=== PATIENT | female | born 1955 | race Caucasian/White ===

== ENCOUNTER → 2020-05-11 11:41 | Outpatient (CLI) | payer MEDICARE, OTHER, SELFPAY ==
--- NOTE | ~2020-05-11 | MM_ITS ---
EXAMINATION: MM screening boaz BI w taina HISTORY: Screening TECHNIQUE: Craniocaudal and mediolateral oblique 3-D tomosynthesis images were obtained and synthetic 2-D images were generated. CAD analysis was submitted and interpreted. COMPARISON: Comparison to multiple prior studies sequentially, with oldest reviewed study dated 02/08. BREAST PARENCHYMAL COMPOSITION: There are scattered areas of fibroglandular density. FINDINGS: There is no evidence of suspicious mass, calcification, or architectural distortion to sugg est malignancy in either breast. There has been no suspicious interval change. IMPRESSION: 1. No mammographic evidence of malignancy. 2. Recommend routine screening mammography in one year. BI-RADS Category 1: Negative Reviewed, dictated and finalized at location A.
== END ==
PROVIDERS: Visit Provider Obstetrics & Gynecology
DX: Z12.31 Encounter for screening mammogram for malignant neoplasm of breast (principal)
CPT/HCPCS: 77063; 77067

== ENCOUNTER → 2021-08-21 15:07 | Outpatient (CLI) | payer MEDICARE, OTHER, SELFPAY ==
--- NOTE | ~2021-08-21 | MM_ITS ---
EXAMINATION: MM screening boaz BI w taina HISTORY: Screening TECHNIQUE: Craniocaudal and mediolateral oblique 3-D tomosynthesis images were obtained and synthetic 2-D images were generated. CAD analysis was submitted and interpreted. COMPARISON: Comparison to multiple prior studies sequentially, with oldest reviewed study dated 01/06. BREAST PARENCHYMAL COMPOSITION: There are scattered areas of fibroglandular density. FINDINGS: There is no evidence of suspicious mass, calcification, or architectural distortion to sugg est malignancy in either breast. There has been no suspicious interval change. IMPRESSION: 1. No mammographic evidence of malignancy. 2. Recommend routine screening mammography in one year. BI-RADS Category 1: Negative Reviewed, dictated and finalized at location A.
== END ==
PROVIDERS: PCP Family Medicine; Visit Provider Nurse Practitioner
DX: Z12.31 Encounter for screening mammogram for malignant neoplasm of breast (principal)
CPT/HCPCS: 77063; 77067

== ENCOUNTER 2022-06-07 11:20 | Outpatient (CLI) | payer MEDICARE, OTHER, SELFPAY ==
--- NOTE | ~2022-06-07 | US_ITS ---
US thyroid INDICATION: Palpable mass mid neck. TECHNIQUE: Real-time sonographic images of the thyroid gland were obtained. COMPARISON: Ultrasound dated 06/26/2017 FINDINGS: In the area of palpable concern in the mid neck no discrete solid or cystic mass is identif ied. The right thyroid lobe measures 3.7 x 1.5 x 1.2 cm. The left thyroid lobe measures 3.3 x 1.3 x 0.9 cm. There is normal echotexture and echogenicity throughout the thyroid gland. There are 2 small cysts of the right thyroid lobe measuring 3 mm. Normal vascular flow is present. IMPRESSION: 1. No discrete abnormality identified in the area of palpable concern. 2: Small benign cysts of the right thyroid lobe measuring 3 mm. Reviewed, dictated and finalized at location B.
== END 2022-06-07 11:21 | disposition home or self-care (01) ==
LOC: ANHIMG 11:26
PROVIDERS: PCP Family Medicine; Visit Provider Family Medicine
DX: R22.1 Localized swelling, mass and lump, neck (principal)
CPT/HCPCS: 76536

== ENCOUNTER 2022-12-08 14:38 | Emergency (ER) | payer MEDICARE, OTHER, SELFPAY ==
[2022-12-08] VITALS (10 sets, daily range): BP systolic 130–144; BP diastolic 69–86; PULSE 91–98; RESP 15–30; TEMP 36.7; O2SAT 98–100
--- NOTE | ~2022-12-08 | XR_ITS ---
EXAMINATION: XR chest 2V Exam Date/Time: 12/08/2022 16:50 CORE CUTTER AND REAMER HISTORY: AMS, CONFUSION, H/O DIABETES Comparison: None available. RESULT: Lines, tubes, and devices: None. Lungs and pleura: Clear. Cardiomediastinal silhouette: Unremarkable. Other: No acute osseous or upper abdominal finding. IMPRESSION: No acute cardiopulmonary process. Reviewed, dictated and finalized at location K. CUTTER AND REAMER
[2022-12-08 17:26] LABS: Basophils Percent Auto 0.4 % (0.2-1.2); Eosinophils Absolute Auto 0.2 K/mm3 (0-0.3); Eosinophils Percent Auto 3.8 % (0-4.4); Hematocrit 39.9 % (37.0-47.0); Hemoglobin 13.4 g/dL (12.0-15.0); Immature Granulocyte Absolute 0.02 K/mm3 (0.00-0.031); Immature Granulocyte Percent A 0.4 % (0-0.5); Immature Platelet Fraction Pct 5.2 % (0.9-11.2); Lymphocytes Absolute Auto 1.32 K/mm3 (0.9-3.2); Lymphocytes Percent Auto 25.4 % (18.3-44.2); Mean Corpuscular HGB Conc 33.6 g/dl (32-36); Mean Corpuscular Hemoglobin 32.8 pg (26-34); Mean Corpuscular Volume 97.8 fl (80-100); Mean Platelet Volume 10.7 fl (7.4-10.4); Monocytes Absolute Auto 0.4 K/mm3 (0.1-0.6); Monocytes Percent Auto 8.5 % (2.6-8.5); Neutrophils Absolute Auto 3.2 K/mm3 (1.3-6.7); Neutrophils Percent Auto 61.5 % (45.5-73.1); Platelet Count Result 149 k/mm3 (150-375); Red Blood Count 4.08 M/mm3 (4.2-5.4); Red Cell Distribution Width 13.7 % (11.5-14.5); White Blood Count 5.2 K/mm3 (4.5-10.0)
[2022-12-08 17:27] LABS: Appearance Urine Slightly Cloudy (Clear); Bilirubin Urine Negative (Negative); Blood Urine Trace-intact (Negative); Color Urine Yellow (Yellow); Glucose Urine UA Trace mg/dL (Negative); Ketones Urine Negative (Negative); Leukocyte Esterase Ur 2+ LEU/UL (Negative); Nitrate Urine Negative (Negative); Protein Urine Negative (Negative); Specific Grav Ur >= 1.030 (1.001-1.035); Urobilinogen Urine 0.2 mg/dL (<2.0); pH Urine 5.5 (5.0-9.0)
[2022-12-08 17:30] LABS: Bacteria Urine Trace /hpf; Mucus Urine Rare /lpf; Squamous Epithelial Cell Urine Occasional /hpf (Few); WBC Urine >75 /hpf
[2022-12-08 17:31] LABS: Add Urine Microscopic? YES
[2022-12-08] MEDS: CARBIDOPA/LEVODOPA 25/100 MG TABLET 1 TABLET PO (17:36)
[2022-12-08 17:39] LABS: Alanine Aminotransferase 14 U/L (6-35); Albumin Level 4.7 g/dL (3.5-5.1); Alkaline Phosphatase 101 U/L (38-126); Anion Gap 10 mmol/L (8-16); Aspartate Amino Transferase 38 U/L (14-36); Bilirubin,Total 0.8 mg/dL (0.2-1.3); Blood Urea Nitrogen 13 mg/dL (7-17); Carbon Dioxide 25 mmol/L (22-30); Chloride 106 mmol/L (98-107); Estimated CRCL calculation 50 ml/min; Estimated Glomerular Filt Rate 55; Glucose 193 mg/dL (65-110); Sodium 141 mmol/L (137-145)
--- NOTE | 2022-12-08 18:00 | ED.AMS ---
HPI - Altered Mental Status General Chief Complaint: Altered Mental Status Stated Complaint: AMS Time Seen by Provider: 12/08/22 16:35 History of Present Illness HPI narrative: Patient is a 67-year-old female who presents ER with an episode of confusion. reports patient has been having confusion for the last 2 months. It is intermittent. Will last a couple hours at a time. Today he went to get a frozen Coke for her and she locked him out of the car and said he was a stranger that lives in her home and she felt unsafe. She is back to her baseline is oriented x3. She reports history of Parkinson's. Her neurologist decreased some medication to see if it would help these episodes of confusion/hallucination. She denies any other complaints at this time. Related Data Home Medications Medication Instructions Recorded Confirmed multivitamin 1 tablet PO DAILY 11/09/20 11/16/22 amantadine HCl 137 mg 274 mg PO QHS 05/29/21 11/16/22 capsule,extended release 24 hr (Gocovri) carbidopa 25 mg-levodopa 100 mg 1 tablet PO QID 05/29/21 11/16/22 tablet carbidopa ER 50 mg-levodopa 200 mg 1 tablet PO DAILY 05/29/21 11/16/22 tablet,extended release gabapentin 300 mg capsule 300 mg PO TID 05/29/21 11/16/22 cholecalciferol (vitamin D3) 50 50 mcg PO DAILY 12/04/21 11/16/22 mcg (2,000 unit) capsule Allergies Allergy/AdvReac Type Severity Reaction Status Date / Time LUANN Inhibitors Allergy Mild cough Verified 11/16/22 14:23 latex Allergy Mild itching, Verified 11/16/22 14:23 redness Review of Systems Review of Systems: All systems reviewed & are unremarkable except as noted in HPI and below Constitutional: Constitutional: Denies chills and Denies fever(s) Cardiovascular: Cardiovascular: Denies chest pain, Denies rapid heart rate and Denies radiating jaw, neck or arm pain Gastrointestinal: Gastrointestinal: Denies abdominal pain, Denies nausea and Denies vomiting Genitourinary: Genitourinary: Denies dysuria and Denies urinary urgency Neurologic: Reports confusion, Denies tingling and Denies paresthesias Comments: Resting tremor PMFSH Past Medical History Medical History Anxiety Benign essential hypertension Chronic GERD Chronic low back pain CKD (chronic kidney disease) stage 3, GFR 30-59 ml/min DM w/o complication type II Dyslipidemia Fatty liver Parkinsons disease Primary osteoarthritis involving multiple joints Screening for malignant neoplasm of colon performed (~04/2020) Cologard Negative Spinal stenosis Vitamin D deficiency Surgical History Surgical History History of bilateral knee replacement (~2014) History of 1989 History of patellar fracture 10/2017 - ORIF Family History Family History (Updated 11/16/22 @ 14:28 by Arlene Jackson CMA) Mother Hypertension Family history of diabetes mellitus in first degree relative Father Hypertension Family history of congestive heart failure Family history of heart disease in male family member before age 55 Acute myocardial infarction Sibling Family history of diabetes mellitus in first degree relative Other Cerebrovascular accident Diabetes mellitus Family history of gout Social History Social History (Updated 11/16/22 @ 14:34 by Arlene Jackson CMA) Smoking status: Never smoker Alcohol intake: never Substance use: never Substance use type: does not use Lack of Transportation: No Lack of Food: Never True Current Housing: I Have Housing Concerned About Future Housing: No Difficulty Paying Gas/Electric Bills: No Difficulty Paying for Meds: No Currently Unemployed: No Education: Bachelor's Degree Difficulty w/ Childcare or Family Care: No Living arrangements: with family Additional living arrangements comments: Occupation/Education: retired [employer]
[2022-12-08] MEDS: CEPHALEXIN 500 MG CAPSULE PO (18:16)
== END 2022-12-08 18:50 | disposition home or self-care (01) ==
PROVIDERS: Emergency Provider Emergency Medicine; PCP Family Medicine
DX: N39.0 Urinary tract infection, site not specified (principal); R41.0 Disorientation, unspecified; I12.9 Hypertensive chronic kidney disease with stage 1 through stage 4 chronic kidney disease, or unspecified chronic kidney disease; E11.22 Type 2 diabetes mellitus with diabetic chronic kidney disease; N18.30 Chronic kidney disease, stage 3 unspecified; G20 Parkinson's disease; E55.9 Vitamin D deficiency, unspecified; M19.90 Unspecified osteoarthritis, unspecified site; K21.9 Gastro-esophageal reflux disease without esophagitis; Z96.653 Presence of artificial knee joint, bilateral; Z79.84 Long term (current) use of oral hypoglycemic drugs
CPT/HCPCS: 36415; 71046; 80053; 81001; 85025; 85055; 87086; 99283; A9270

== ENCOUNTER 2022-12-17 10:32 | Outpatient (CLI) | payer MEDICARE, OTHER, SELFPAY ==
[2022-12-17 10:49] LABS: Kit Draw Collected
== END 2022-12-17 10:33 | disposition home or self-care (01) ==
LOC: ANHGOSHLAB 10:33
PROVIDERS: PCP Family Medicine; Visit Provider Nurse Practitioner
DX: E11.9 Type 2 diabetes mellitus without complications (principal)
CPT/HCPCS: 36415

== ENCOUNTER 2023-06-28 08:30 | Outpatient (CLI) | payer MEDICARE, OTHER, SELFPAY ==
[2023-06-28 13:11] LABS: Basophils Percent Auto 0.4 % (0.2-1.2); Eosinophils Absolute Auto 0.2 K/mm3 (0-0.3); Eosinophils Percent Auto 2.6 % (0-4.4); Hematocrit 39.7 % (37.0-47.0); Hemoglobin 13.2 g/dL (12.0-15.0); Immature Granulocyte Absolute 0.02 K/mm3 (0.00-0.031); Immature Granulocyte Percent A 0.4 % (0-0.5); Lymphocytes Absolute Auto 1.54 K/mm3 (0.9-3.2); Mean Corpuscular HGB Conc 33.2 g/dl (32-36); Mean Corpuscular Hemoglobin 33.3 pg (26-34); Mean Corpuscular Volume 100.3 fl (80-100); Mean Platelet Volume 10.9 fl (7.4-10.4); Monocytes Absolute Auto 0.5 K/mm3 (0.1-0.6); Monocytes Percent Auto 9.3 % (2.6-8.5); Neutrophils Absolute Auto 3.4 K/mm3 (1.3-6.7); Neutrophils Percent Auto 60.3 % (45.5-73.1); Platelet Count Result 147 k/mm3 (150-375); Red Blood Count 3.96 M/mm3 (4.2-5.4); Red Cell Distribution Width 12.4 % (11.5-14.5); White Blood Count 5.7 K/mm3 (4.5-10.0)
[2023-06-28 13:17] LABS: Hemoglobin A1C 5.6 % (<5.7)
[2023-06-28 13:32] LABS: Alanine Aminotransferase 18 U/L (6-35); Albumin Level 4.6 g/dL (3.5-5.1); Alkaline Phosphatase 70 U/L (38-126); Anion Gap 12 mmol/L (8-16); Aspartate Amino Transferase 56 U/L (14-36); Bilirubin,Total 0.8 mg/dL (0.2-1.3); Blood Urea Nitrogen 30 mg/dL (7-17); Calcium 9.6 mg/dL (8.4-10.2); Carbon Dioxide 24 mmol/L (22-30); Chloride 103 mmol/L (98-107); Cholesterol 180 mg/dL (0-200); Estimated Glomerular Filt Rate 44; Glucose 88 mg/dL (65-110); HDL Direct 43 mg/dL; Potassium 4.2 mmol/L (3.4-5.0); Sodium 139 mmol/L (137-145); Triglycerides 201 mg/dL (<150)
[2023-06-28 13:43] LABS: Vitamin D 25 Hydroxy 80.3 ng/mL
[2023-06-28 13:44] LABS: LDL Cholesterol Direct 86 mg/dL
== END 2023-06-28 08:31 | disposition home or self-care (01) ==
PROVIDERS: PCP Family Medicine; Visit Provider Family Medicine
DX: E55.9 Vitamin D deficiency, unspecified (principal); I10 Essential (primary) hypertension; E11.9 Type 2 diabetes mellitus without complications; E78.5 Hyperlipidemia, unspecified; E53.8 Deficiency of other specified B group vitamins
CPT/HCPCS: 36415; 80053; 80061; 82306; 82607; 83036; 84443; 85025

== ENCOUNTER 2023-08-13 06:15 | Day surgery (SDC) | payer MEDICARE, OTHER, SELFPAY ==
--- NOTE | ~2023-08-13 | XR_ITS ---
XR fluoroscopy no charge Procedure:Bilateral intra-articular sacroiliac joint steroid injection TECHNIQUE: Fluoroscopy used during Bilateral intra-articular sacroiliac joint steroid injection perf ormed by [Jorge Gonzalez MD] on 08/13/2023. 12 seconds of fluoroscopy time with 7 fluoroscopic images captured. FINDINGS: Correlate with procedure note. IMPRESSION: Fluoroscopy used during Bilateral intra-articular sacroiliac joint steroid injection. Reviewed, dictated and finalized at location B.
--- NOTE | 2023-08-13 04:55 | WPDHPUPDATE1 ---
History and Physical Update Update Date/Time: 08/13/23 04:55 History and Physical has been reviewed, including an updated exam of the patient. There are NO changes in the patient's condition. Risks, benefits, and alternatives have been discussed and questions answered. Patient agrees to proceed with procedure.
[2023-08-13 08:36] VITALS: BP 119/68; PULSE 70; RESP 20; TEMP 36.6; O2SAT 100
[2023-08-13] MEDS: BUPivacaine HCL 0.5% 10 ML AMP 2 ML INFILTRATE (09:45)
[2023-08-13] MEDS: BETAMETHASONE SODIUM PHOSPHATE PF INJ 6 MG/ML VIAL INFILTRATE (09:45)
[2023-08-13] MEDS: LIDOCAINE HCL 1% PF INJ 5 ML VIAL XX (09:45)
--- NOTE | 2023-08-13 09:53 | W.PM.PROC2 ---
Procedure Note - Detailed Date of Procedure 08/13/23 Pre-op Diagnosis Sacroiliitis, sacral spondylosis, dorsalgia Post-op Diagnosis Same Procedure Performed [Right Left] Sacroiliac Joint Steroid Injection under Fluoroscopic Guidance and with Contrast Control, [Right Left] [superior cluneal nerve block][, trigger point injections of the right erector spinae, quadratus lumborum and gluteal muscles (3+ muscles total)]. Surgeon Jorge Gonzalez MD Anesthesia Local Indications chronic, recalcitrant mobility limiting bilateral pelvic pain secondary to sacroiliac joint arthropathy unresponsive to more conservative care Description of Procedure INFORMED CONSENT: Risks, benefits and alternatives to the procedure were discussed in detail with the patient who expressed explicit understanding and consent to proceed. Patient was informed verbally and in written form regarding the risks associated with the procedure including the low risk of serious infection, bleeding/bruising, allergic reaction, nerve or organ injury, paralysis, procedural site pain or discomfort, worsening pain and/or mobility, failure to treat and/or disfigurement. The patient expressed explicit understanding and consent to proceed. All materials required for the procedure were available prior to procedure start. Site and side were marked prior to procedure and confirmed in the presence of the patient. PROCEDURE IN DETAIL: The patient was brought to the procedural suite and placed in the prone position. Patient was made comfortable with use of pillows under the head/chest, hips and ankles. Skin overlying the injection site on the affected side(s) was prepared broadly with ChloraPrep applicator and draped in a sterile manner. Aseptic technique was used throughout. The SI joint was identified in the AP view and contralateral oblique angulation with caudal tilt was utilized to optimize visualization of the inferior and medial joint line representing the posterior portion of the joint. Local anesthesia was established by infiltration with approximately 5 mL of 2% lidocaine via a 1-1/2 inch 27-gauge needle. A 22-gauge 3.5 inch Quincke spinal needle was advanced until the needle entered the inferior third of the right SI joint space approximately 1cm cephalad from its most inferior point. In the AP view, 0.5 mL of Omnipaque 300 contrast medium was injected after negative aspiration for CSF, blood or other bodily fluid, showing appropriate intra-articular spread of contrast without evidence of intravascular, perineural or intrathecal placement. A 1.0 mL solution containing 3.0 mg of betamethasone in 0.5% PF bupivacaine was injected after repeat negative aspiration. Appropriate spread of the injectate was confirmed with washout of previous injected contrast. No parasthesias were elicited. Needle was removed completely intact without difficulty. The same exact procedure was repeated for all remaining levels on the contralateral side, left SI joint, modified as necessary to accommodate for the new target location with identical findings/results and no evidence of complication. Images were saved and documented in the patient chart. Patient's skin was cleansed and sterile bandage applied. The patient tolerated the procedure well. The patient was transported to the recovery area in stable condition where they were observed for an appropriate amount of time prior to discharge, without evidence of complication. The patient was instructed to avoid excessive activity for the next 48 hours, including climbing and frequent use of stairs. Showers only for 48 hours. They were instructed not to drive or operate heavy machinery for 24 hours. They are to monitor for severe headaches, fevers, chills, night sweats, erythema/swelling at the site or any other signs of infection, bleeding/bruising, bowel or bladder changes as well as new pain, weakness or numbness in the upper or lower extremity. Should they notice these changes, they
[2023-08-13 09:56] VITALS: BP 106/69; PULSE 78; RESP 18; O2SAT 98
== END 2023-08-13 10:15 | disposition home or self-care (01) ==
LOC: ASC 08:05
PROVIDERS: PCP Family Medicine; Visit Provider Anesthesiology Pain Medicine
PROC: (CPT G0260; principal; 2023-08-13 09:00)
DX: M46.1 Sacroiliitis, not elsewhere classified (principal); M54.59 Other low back pain
CPT/HCPCS: G0260 ×2; 27096; 99199

== ENCOUNTER 2023-09-20 12:58 | Outpatient (CLI) | payer MEDICARE, OTHER, SELFPAY ==
--- NOTE | ~2023-09-20 | MR_ITS ---
EXAMINATION: MR brain/brain stem wo con DATE: 09/20/2023 14:00 INDICATION: Other symptoms and signs involving cognitive function. TECHNIQUE: Magnetic resonance imaging (MRI) of the brain and brainstem was performed without intraven ous contrast. COMPARISON: None. FINDINGS: There are scattered areas of nonspecific increased T2-weighted signal intensity in the cere bral white matter and bilateral basal ganglia. There is no intracranial hemorrhage, acute infarction, or abnormal intracranial mass lesion. The ventricles are normal in size. The orbits are normal. The paranasal sinuses are clear. The mastoid air cells are normal. IMPRESSION: 1. Moderate nonspecific cerebral white matter disease and disease of the bilateral basal ganglia, whi ch likely represents chronic small vessel ischemic disease. Reviewed, dictated and finalized at location A. [employer] IMPRESSION: 1. Moderate nonspecific cerebral white matter disease and disease of the bilate ral basal ganglia, which likely represents chronic small vessel ischemic diseas e.
--- NOTE | ~2023-09-20 | XR_ITS ---
EXAMINATION: XR hip BI 2V w AP pelvis, XR lumbar spine 6V w bending DATE: 09/20/2023 14:29 INDICATION: Low back pain and sacroiliitis TECHNIQUE: 1. AP, lateral, and lateral flexion, lateral extension, left and right oblique and coned-down lateral lumbosacral views of the lumbar spine were obtained. 2. Anteroposterior view of the pelvis and anteroposterior and frog-leg lateral views of the left hip and anteroposterior and frog-leg lateral views of the right hip and were obtained. COMPARISON: Lumbar spine MR dated 09/20/2023 FINDINGS: Lumbar spine: 10 degrees lumbar levoscoliosis. 4 mm anterolisthesis L4 on L5 which is unchanged with flexion and ex tension. There is hypomotility of the lumbar spine with flexion and extension. Vertebral body heights are normal. Moderate disc height loss at T9-T10 through T11-T12, mild Mild disc height loss at L2-L3 and L3-L4 and moderate disc height loss at L4-L5. Multilevel bilateral moderate upper and severe mid to lower lumbar facet osteoarthritis. No pars interarticularis defects. 4 mm calcification projectin g over the upper pole of the right kidney suspicious for nephrolithiasis. Multiple calcifications in the pelvis most likely representing phleboliths although distal ureteral stones cannot be excluded. Pelvis and bilateral hips: Bone alignment is normal. No fracture or suspected avascular necrosis. Mild osteoarthritis at the bi lateral hip and sacroiliac joints. No evident erosions at the bilateral sacroiliac joints to suggest an inflammatory sacroiliitis. IMPRESSION: 1. Moderate lumbar spondylosis with no change in 4 mm anterolisthesis of L4 on L5 with flexion or ext ension. 2. Mild bilateral hip and sacroiliac osteoarthritis. No evident erosions at the sacroiliac joints to suggest inflammatory sacroiliitis. 3. 4 mm calcification projecting over the upper pole of the right kidney possibly representing a donna l stone. Reviewed, dictated and finalized at location A. INTMENT CLERK IMPRESSION: 1. Moderate lumbar spondylosis with no change in 4 mm anterolisthesis of L4 on L5 with flexion or extension. 2. Mild bilateral hip and sacroiliac osteoarthritis. No evident erosions at the sacroiliac joints to suggest inflammatory sacroiliitis. 3. 4 mm calcification projecting over the upper pole of the right kidney possib ly representing a renal stone.
--- NOTE | ~2023-09-20 | MR_ITS ---
EXAMINATION: MR lumbar spine wo con DATE: 09/20/2023 14:10 INDICATION: Other chronic pain. Spinal stenosis. TECHNIQUE: Magnetic resonance imaging (MRI) of the lumbar spine was performed without intravenous con trast. COMPARISON: Lumbar spine radiographs 09/20/2023 FINDINGS: There is 4 mm anterolisthesis of L4 on L5. Vertebral body heights are normal. There is julio rely decreased disc height at T11-T12, mildly decreased disc height at L2-L3 and L3-L4, and moderatel y decreased disc height at L4-L5. The distal spinal cord signal intensity is normal. The conus medull rahul is at L1. The following disc levels are specifically discussed: L1-L2: The disc is bulging. There is moderate right and mild left facet joint osteoarthritis. There i s mild bilateral neural foraminal stenosis. There is no central canal stenosis. L2-L3: The disc is bulging. There is moderate bilateral facet joint osteoarthritis. There is mild pete ateral neural foraminal stenosis. There is mild central canal stenosis. L3-L4: The disc is bulging. There is severe bilateral facet joint osteoarthritis. There is mild bilat eral neural foraminal stenosis. There is mild central canal stenosis. L4-L5: The disc is bulging and has an annular fissure. There is severe bilateral facet joint osteoart hritis. There is mild bilateral neural foraminal stenosis. There is mild central canal stenosis. L5-S1: The disc is bulging. There is severe bilateral facet joint osteoarthritis. There is mild bilat eral neural foraminal stenosis. There is mild central canal stenosis. IMPRESSION: 1. Moderate lumbar spondylosis. Reviewed, dictated and finalized at location A. RVISOR DOCK
== END 2023-09-20 12:59 | disposition home or self-care (01) ==
PROVIDERS: PCP Family Medicine; Visit Provider Family Medicine
DX: M46.1 Sacroiliitis, not elsewhere classified (principal); M47.896 Other spondylosis, lumbar region; M16.0 Bilateral primary osteoarthritis of hip; R90.82 White matter disease, unspecified
CPT/HCPCS: 70551; 72114; 72148; 73521

== ENCOUNTER → 2023-11-08 12:29 | Outpatient (CLI) | payer MEDICARE, OTHER, SELFPAY ==
--- NOTE | ~2023-11-08 | MM_ITS ---
EXAMINATION: MM screening boaz BI w taina HISTORY: Screening TECHNIQUE: Craniocaudal and mediolateral oblique 3-D tomosynthesis images were obtained and synthetic 2-D images were generated. CAD analysis was submitted and interpreted. COMPARISON: No prior mammogram is available for comparison at this institution. BREAST PARENCHYMAL COMPOSITION: There are scattered areas of fibroglandular density. FINDINGS: There is no evidence of suspicious mass, calcification, or architectural distortion to sugg est malignancy in either breast. There has been no suspicious interval change. IMPRESSION: 1. No mammographic evidence of malignancy. 2. Recommend routine screening mammography in one year. BI-RADS Category 1: Negative Reviewed, dictated and finalized at location A. LINER MAKER
== END ==
PROVIDERS: PCP Family Medicine; Visit Provider Family Medicine
DX: Z12.31 Encounter for screening mammogram for malignant neoplasm of breast (principal)
CPT/HCPCS: 77063; 77067

== ENCOUNTER 2023-11-21 13:38 | Emergency (ER) | payer MEDICARE, OTHER, SELFPAY ==
--- NOTE | ~2023-11-21 | CT_ITS ---
CT head without contrast Indication: Head trauma Technique: Serial scans were obtained through the brain without the administration of contrast. Dose reduction technique was used on this scan by utilizing automated exposure control and iterative recon struction technique. The dose-length product (DLP) was 756.67 mGy-cm. Findings: There is no evidence of intracranial hemorrhage, mass lesion, or acute infarct. The ventri cles and subarachnoid spaces are dilated, consistent with mild atrophy. Low attenuation regions are seen within the periventricular white matter bilaterally, likely representing changes from chronic mi crovascular ischemic disease. There is no evidence of edema, mass effect or midline shift. The visu alized paranasal sinuses and mastoid air cells are clear. Impression: No intracranial hemorrhage, mass, or acute infarct. Atrophy and chronic white matter changes, as above. Reviewed, dictated and finalized at location . TRANSPORT Impression: No intracranial hemorrhage, mass, or acute infarct. Atrophy and chronic white matter changes, as above.
[2023-11-21 13:32] VITALS: BP 142/88; PULSE 88; RESP 30; TEMP 36.4; O2SAT 97
--- NOTE | 2023-11-21 14:42 | ED.FALL ---
HPI - Fall General Chief Complaint: Fall Stated Complaint: Fall/laceration Time Seen by Provider: 11/21/23 13:48 History of Present Illness HPI Narrative: patient presents here because she had fallen because she is unsteady on her feet from her Parkinson's, she hit her head on cement, no loss of consciousness, she did have bleeding from the back of her head. no nausea or vomiting. Related Data Home Medications Medication Instructions Recorded Confirmed multivitamin 1 tablet PO DAILY 11/09/20 08/28/23 carbidopa ER 50 mg-levodopa 200 mg 1 tablet PO DAILY 05/29/21 08/28/23 tablet,extended release gabapentin 300 mg capsule 300 mg PO TID 05/29/21 08/28/23 acetaminophen 325 mg tablet 325 mg PO Q6H PRN Pain 06/17/23 08/28/23 (Tylenol) carbidopa 25 mg-levodopa 100 mg 1 tablet PO .5xD 06/17/23 08/28/23 tablet cholecalciferol (vitamin D3) 50 5,000 unit PO DAILY 06/17/23 08/28/23 mcg (2,000 unit) capsule pimavanserin 34 mg capsule 34 mg PO DAILY 06/17/23 08/28/23 (Nuplazid) rivastigmine tartrate 1.5 mg 1.5 mg PO BID 06/17/23 08/28/23 capsule sertraline 100 mg tablet 150 mg PO DAILY 06/17/23 08/28/23 Allergies Allergy/AdvReac Type Severity Reaction Status Date / Time LUANN Inhibitors Allergy Mild cough Verified 09/30/23 16:03 Review of Systems Review of Systems: All systems reviewed & are unremarkable except as noted in HPI and below PMFSH Past Medical History Medical History Anxiety Benign essential hypertension Chronic GERD Chronic low back pain Chronic pain of both hips CKD (chronic kidney disease) stage 3, GFR 30-59 ml/min Depression with anxiety DM w/o complication type II Dyslipidemia Fatty liver Parkinsons disease Primary osteoarthritis involving multiple joints Screening for malignant neoplasm of colon performed (~04/2020) Cologard Negative Spinal stenosis Vitamin D deficiency Surgical History Surgical History History of bilateral knee replacement (~2014) History of 1989 History of patellar fracture 10/2017 - ORIF Family History Family History Mother Hypertension Family history of diabetes mellitus in first degree relative Father Hypertension Family history of congestive heart failure Family history of heart disease in male family member before age 55 Acute myocardial infarction Sibling Family history of diabetes mellitus in first degree relative Other Cerebrovascular accident Diabetes mellitus Family history of gout Social History Social History Smoking status: Never smoker Alcohol intake: never Substance use: never Substance use type: does not use Lack of Transportation: No Lack of Food: Never True Current Housing: I Have Housing Concerned About Future Housing: No Difficulty Paying Gas/Electric Bills: No Difficulty Paying for Meds: No Currently Unemployed: No Education: Bachelor's Degree Difficulty w/ Childcare or Family Care: No Living arrangements: with family Additional living arrangements comments: Occupation/Education: retired Gender identity (if verbalized by the patient): Female Sexual Orientation (if Verbalized by the Patient): Straight or Heterosexual Spiritual care concerns: No Exam Narrative: EXAMINATION OF ORGAN SYSTEMS/BODY AREAS: Constitutional: Vital signs per nursing GENERAL:[No acute distress, non-toxic appearing.] HEAD: Contusion and 4cm laceration to occiput EYES: EOMI, conjunctiva normal ENT: Hearing grossly intact LUNGS: Nonlabored breathing. HEART: [Regular rate and rhythm] ABD: [Soft], [nontender to palpation] EXT: Normal range of motion SKIN: 4cm laceration to occiput NEURO: [Alert and oriented x 3. No gross focal sensory or stre
[2023-11-21] MEDS: TETANUS,DIPHTHERIA,AC PERTUSSIS ADULT (0.5 ML) BOOSTRIX IM (15:19)
[2023-11-21 15:34] VITALS: BP 120/87; PULSE 87; RESP 17; O2SAT 97
== END 2023-11-21 15:36 | disposition home or self-care (01) ==
PROVIDERS: Emergency Provider Emergency Medicine; PCP Family Medicine
DX: S01.01XA Laceration without foreign body of scalp, initial encounter (principal); Z23 Encounter for immunization; G20.A1 Parkinson's disease without dyskinesia, without mention of fluctuations; F41.8 Other specified anxiety disorders; E11.22 Type 2 diabetes mellitus with diabetic chronic kidney disease; I12.9 Hypertensive chronic kidney disease with stage 1 through stage 4 chronic kidney disease, or unspecified chronic kidney disease; N18.30 Chronic kidney disease, stage 3 unspecified; Z94.0 Kidney transplant status; E78.5 Hyperlipidemia, unspecified; M19.90 Unspecified osteoarthritis, unspecified site; E55.9 Vitamin D deficiency, unspecified; Z96.653 Presence of artificial knee joint, bilateral; Z79.84 Long term (current) use of oral hypoglycemic drugs; W18.39XA Other fall on same level, initial encounter
CPT/HCPCS: 12002; 70450; 90471; 90715; 99284

== ENCOUNTER 2024-07-06 08:58 | Outpatient (CLI) | payer MEDICARE, OTHER, SELFPAY ==
--- NOTE | ~2024-07-06 | XR_ITS ---
XR cervical spine 4-5V Ordering provider: Jorge Gonzalez MD History: . M54.2 - Cervicalgia . Comparison: None. FINDINGS: VERTEBRAL BODIES: Normal height and alignment. No visible fracture or subluxation. The dens is intact . DISK SPACES: Narrowing of the disc C4-C5 and C5-C6 and C6-C7. Multilevel facet joint disease. Multilevel uncovertebral joint osteoarthri tic changes. PARASPINOUS SOFT TISSUES: No prevertebral soft tissue swelling. Bilateral carotid calcifications. IMPRESSION: No acute osseous abnormality cervical spine. Reviewed, dictated and finalized at location A.
--- NOTE | ~2024-07-06 | XR_ITS ---
XR shoulder RT min 2V Ordering provider: Jorge Gonzalez MD History: . M25.511 - Pain in right shoulder . Comparison: None. FINDINGS: BONES: No acute fracture or dislocation. JOINT SPACES: The acromioclavicular joint is normal. The glenohumeral joint shows mild to moderate os teoarthritic changes with osteophytes seen in the humerus. . SOFT TISSUES: Normal. IMPRESSION: No acute osseous abnormality right shoulder. Reviewed, dictated and finalized at location A.
--- NOTE | ~2024-07-06 | MR_ITS ---
EXAMINATION: MR shoulder RT wo con DATE: 07/06/2024 10:21 INDICATION: Right shoulder pain TECHNIQUE: Magnetic resonance imaging (MRI) of the right shoulder was performed without intravenous c ontrast. Sequences included axial PD-weighted FS FSE, axial T2-weighted FS FSE, coronal oblique PD-we ighted FS FSE, coronal oblique T2-weighted FS FSE, sagittal PD-weighted FS FSE, and sagittal T1-weigh katy SE. COMPARISON: None. FINDINGS: Evaluation is significantly limited by moderate to large amount of motion artifact on all sequences. Coracoacromial arch: The acromion undersurface is mildly curved in morphology (type I-II). The coracoacromial ligament is normal. 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 Rotator cuff: There is likely mild supraspinatus tendinopathy. No rotator cuff tear identified although sensitivity for smaller partial-thickness tears is significantly limited by the motion artifact. Normal rotator cuff muscle bulk and signal. Biceps tendon, glenoid labrum and glenohumeral cartilage: Long head of the biceps tendon can be seen coursing to its normal glenoid attachment however further assessment is nondiagnostic. There appears to be at least mild glenohumeral osteoarthritis however fu rther assessment including of the integrity of the cartilage is limited by motion artifact. The gleno id labrum is also not diagnostically evaluated although appears grossly intact on the coronal T2-weig hted images. Fluid: Small glenohumeral joint effusion with proportional extension of a small amount of fluid along the bi ceps tendon sheath. Increased fluid signal in the subacromial/subdeltoid bursa consistent with mild bursitis. Bones: Bone alignment is normal. No fracture or pathologic marrow replacing process. IMPRESSION: 1. Significantly limited study due to moderate or severe motion artifact on all sequences. 2. Likely mild acromioclavicular and at least mild glenohumeral osteoarthritis with small glenohumera l joint effusion. 3. At least mild supraspinatus tendinopathy. No definitive rotator cuff tear identified although sens itivity for smaller partial-thickness tears is significantly decreased. 4. Mild subacromial/subdeltoid bursitis. Reviewed, dictated and finalized at location B. IMPRESSION: 1. Significantly limited study due to moderate or severe motion artifact on all sequences. 2. Likely mild acromioclavicular and at least mild glenohumeral osteoarthritis with small glenohumeral joint effusion. 3. At least mild supraspinatus tendinopathy. No definitive rotator cuff tear id entified although sensitivity for smaller partial-thickness tears is significan tly decreased. 4. Mild subacromial/subdeltoid bursitis.
== END 2024-07-06 08:59 | disposition home or self-care (01) ==
LOC: ANHIMG 09:00
PROVIDERS: PCP Family Medicine; Visit Provider Anesthesiology Pain Medicine
DX: M54.2 Cervicalgia (principal); M75.41 Impingement syndrome of right shoulder; M19.011 Primary osteoarthritis, right shoulder; M75.51 Bursitis of right shoulder
CPT/HCPCS: 72050; 73030; 73221

== ENCOUNTER 2024-07-09 09:19 | Outpatient (CLI) | payer MEDICARE, OTHER, SELFPAY ==
[2024-07-09 10:22] LABS: Basophils Percent Auto 0.7 % (0.2-1.2); Eosinophils Absolute Auto 0.1 K/mm3 (0-0.3); Eosinophils Percent Auto 2.3 % (0-4.4); Hematocrit 40.4 % (37.0-47.0); Hemoglobin 13.7 g/dL (12.0-15.0); Immature Granulocyte Absolute 0.01 K/mm3 (0.00-0.031); Immature Granulocyte Percent A 0.2 % (0-0.5); Lymphocytes Absolute Auto 1.45 K/mm3 (0.9-3.2); Lymphocytes Percent Auto 24.2 % (18.3-44.2); Mean Corpuscular HGB Conc 33.9 g/dl (32-36); Mean Corpuscular Hemoglobin 32.3 pg (26-34); Mean Corpuscular Volume 95.3 fl (80-100); Mean Platelet Volume 9.8 fl (7.4-10.4); Monocytes Absolute Auto 0.4 K/mm3 (0.1-0.6); Neutrophils Percent Auto 66.6 % (45.5-73.1); Platelet Count Result 150 k/mm3 (150-375); Red Blood Count 4.24 M/mm3 (4.2-5.4); Red Cell Distribution Width 13.3 % (11.5-14.5)
[2024-07-09 10:37] LABS: Alanine Aminotransferase 11 U/L (6-35); Albumin Level 4.6 g/dL (3.5-5.1); Alkaline Phosphatase 93 U/L (38-126); Anion Gap 10 mmol/L (4-12); Aspartate Amino Transferase 61 U/L (14-36); Bilirubin,Total 0.9 mg/dL (0.2-1.3); Blood Urea Nitrogen 19 mg/dL (7-17); Calcium 9.9 mg/dL (8.4-10.2); Carbon Dioxide 26 mmol/L (22-30); Chloride 100 mmol/L (98-107); Cholesterol 160 mg/dL (0-200); Estimated Glomerular Filt Rate > 60; Glucose 122 mg/dL (65-110); HDL Direct 47 mg/dL; Potassium 4.4 mmol/L (3.4-5.0); Sodium 136 mmol/L (137-145); Triglycerides 197 mg/dL (<150)
[2024-07-09 10:49] LABS: LDL Cholesterol Direct 73 mg/dL
[2024-07-09 11:19] LABS: Vitamin D 25 Hydroxy 42.1 ng/mL
[2024-07-09 15:57] LABS: Hemoglobin A1C 6.5 % (<5.7)
== END 2024-07-09 09:20 | disposition home or self-care (01) ==
PROVIDERS: PCP Family Medicine; Visit Provider Family Medicine
DX: E78.5 Hyperlipidemia, unspecified (principal); I10 Essential (primary) hypertension; E11.9 Type 2 diabetes mellitus without complications; E53.8 Deficiency of other specified B group vitamins; E55.9 Vitamin D deficiency, unspecified
CPT/HCPCS: 36415; 80053; 80061; 82306; 82607; 83036; 84443; 85025

== ENCOUNTER 2024-07-17 09:34 | Outpatient (NON) | payer MEDICARE, OTHER, SELFPAY ==
[2024-07-17 14:37] LABS: Creatinine Urine 178.5 mg/dL; MALB Creatinine Ratio 11.4 mg/g (0-30); Microalbumin Urine Random 20.4 mg/L (0-16.7)
== END 2024-07-17 09:35 | disposition home or self-care (01) ==
LOC: ANHGOSHLAB 09:36
PROVIDERS: PCP Family Medicine; Visit Provider Family Medicine
DX: E11.9 Type 2 diabetes mellitus without complications (principal)
CPT/HCPCS: 82043

== ENCOUNTER 2024-12-15 14:29 | Outpatient (CLI) | payer MEDICARE, OTHER, SELFPAY ==
--- OUTSIDE RECORDS SUMMARY | 2024-12-15 16:53 | XMS_ITS | Patient Health Summary ---
Author Organization [facility] Address [address] [address] Care Team Providers Care Car Mover Name Role Phone Irene STORM MD, Bashir Unavailable [phone] Walt Leone MD Unavailable [phone] Madyson Raymundo MD Primary Care Provider Note from [facility],non-owned Affiliates and Associated Physician Practices is amultiple site organization consisting of ambulatory clinics and hospital sitesin [place], [place], [place] and [place]. This disclosure is being madepursuant to the Care Everywhere program and may not contain all information available regarding this patient. Last updated 18.[facility] Allergies * Lisinopril(Cough) * Latex(Itching),Inactive Medications * Be aware that medications may not be up to date on this document. Alwaysverify current medications with the patient. * metoprolol tartrate IR (LOPRESSOR) 50 MG tablet Take 12.5 mg by mouth at bedtime * atorvastatin (LIPITOR) 80 MG tablet Take 1 (one) tablet by mouth at bedtime * JANUVIA 50 MG tablet(Started 11/03/2019) * olmesartan (BENICAR) 20 MG tablet(Started 11/16/2019) * Multiple Vitamin (MULTI VITAMIN PO) Take by mouth once daily * polyethylene glycol 3350 (MIRALAX) 17 GM/SCOOP powder Take 17 (seventeen) g by mouth once daily as needed for Constipation * melatonin 10 MG capsule Take 1 (one) capsule by mouth nightly as needed for Insomnia * Acetaminophen (TYLENOL PO) * Cholecalciferol (SM VITAMIN D3) 100 MCG (4000 UT) Take by mouth once daily * Blood Glucose Monitoring Suppl (ONE TOUCH ULTRA 2) w/Device KIT(Started 04/21/2022) USE TO TEST DAILY * gabapentin (Neurontin) 300 MG capsule(Started 11/29/2023) TAKE 1 CAPSULE BY MOUTH THREE TIMES A DAY 3 refills by 11/28/2024 * carbidopa-levodopa CR (Sinemet CR) 50-200 MG tablet(Started 03/30/2024) TAKE 1 TABLET BY MOUTH EVERYDAY AT BEDTIME 3 refills by 03/30/2025 * carbidopa-levodopa (Sinemet) 25-100 MG tablet(Started 03/30/2024) TAKE 1 (ONE) TABLET BY MOUTH 5 TIMES DAILY WHILE AWAKE 3 refills by 03/30/2025 * rivastigmine (Exelon) 1.5 MG capsule(Started 11/23/2024) TAKE 1 CAPSULE BY MOUTH TWICE A DAY WITH MORNING AND EVENING MEAL 1 refill by 11/23/2025 Ended Medications* rivastigmine (Exelon) 1.5 MG capsule(Started 03/30/2024) (Discontinued) TAKE 1 CAPSULE BY MOUTH TWICE A DAY WITH MORNING AND EVENING MEAL 1 refill by 03/30/2025 Active Problems Problem Noted Date Diagnosed Date Neoplasm of uncertain behavior of skin 0 Sebaceous hyperplasia of face 12/06/2019 Lentigines 12/06/2019 History of basal cell carcinoma 12/06/2019 Actinic keratosis 12/06/2019 Rash and other nonspecific skin eruption 020 Melanocytic nevi of trunk 12/06/2019 Seborrheic keratosis 12/06/2019 Plantar fascial fibromatosis 12/04/2019 Closed fracture of right patella 11/05/2017 My-prosthetic patellar fracture, initial encou nter 11/04/2017 Immunizations * PNEUMOCOCCAL PPSV23(Given 03/27/2015) Social History Tobacco Use Types Packs/Day Years Used Date Smoking Tobacco: Never Smokeless Tobacco: Never Tobacco Cessation:Counseling Given: Not Answered Alcohol Use Standard Drinks/Week Comments Yes 0 (1 standard drink = 0.6 oz pur e alcohol) maybe one drink per month Sex and Gender Information Value Date Recorded Sex Assigned at Not on file Gender Identity Not on file Sexual Orientation Not on file Last Filed Vital Signs Vital Sign Reading Time Taken Comments Blood Pressure 138/87 01/01/2023 11:27 AM CDT Pulse 70 01/01/2023 11:27 AM CDT Temperature 36.4 C (97.6 F) 11/07/2017 11:36 AM DIRECTOR OF RETENTION Respiratory Rate 16 01/01/2023 11:27 AM CDT Oxygen Saturation 98% 01/01/2023 11:27 AM CDT Inhaled Oxygen Concentration - - Weight 79.4 kg (175 lb) 02/06/2023 12:59 PM CDT Height 162.6 cm (5' 4 ) 02/06/2023 12:59 PM CDT Body Mass Index 30.04 02/06/2023 12:59 PM CDT Medical Devices Implanted Type Area Orthopedic Coder Device Identifier Shelf Expiration Date Model / Serial / Lot Alberto Bone Palacos R Implanted:Qty : 2 on 03/24/2015 by Brendan Abdalla MD at [facility] Left: Knee [employer] 09/20/2019 [id number] / / [id number] 29mm Oval Patellar Component Implanted:Qty : 1 on 03/24/2015 by Brendan Abdalla MD at [facility] Left: Knee [employer] 10/21/2024 [id number] / / [id number] Size 4, Left Femoral Component Implanted:Qty : 1 on 03/24/2015 by Brendan Abdalla MD at [facility] Left: Knee [employer] 12/19/2024 [id number] / / [id number] Alberto Bone Palacos R Implanted:Qty : 1 on 03/24/2015 by Brendan Abdalla MD at [facility] Left: [employer]nee [employer] 09/20/2019 [id number] / / [id number] Left, Size 3-4 Articular Insert Implanted:Qty : 1 on 03/24/2015 by Brendan Abdalla MD at [facility] Left: Knee [employer] 02/19/2024 [id number] / / [id number] Alberto Bone Palacos R Implanted:Qty : 2 on 03/24/2015 by Brendan Abdalla MD at [facility] Right: [employer]nee [employer] 09/20/2019 [id number] / / [id number] Size 4, Right Femoral Component Implanted:Qty : 1 on 03/24/2015 by Brendan Abdalla MD at [facility] Right: Knee [employer] 02/19/2024 [id number] / / [id number] 29mm Oval Patellar Component Implanted:Qty : 1 on 03/24/2015 by Brendan Abdalla MD at [facility] Right: Knee [employer] 12/19/2024 [id number] / / [id number] Size 3, Right Tibial Baseplate Implanted:Qty : 1 on 03/24/2015 by Brendan Abdalla MD at [facility] Right: Knee [employer] 11/21/2024 [id number] / / [id number] Right, Size 3-4 12mm Articular Insert Implanted:Qty : 1 on 03/24/2015 by Brendan Abdalla MD at [facility] Right: Knee [employer] 02/19/2024 [id number] / / [id number] Size 3, Left Tibial Baseplate Implanted:Qty : 1 on 03/24/2015 by Brendan Abdalla MD at [facility] Left: Knee [employer] 12/19/2024 [id number] / / [id number] Explanted Type Area Orthopedic Coder Device Identifier Shelf Expiration Date Model / Serial / Lot Cutting Guide, Right Explanted:Qty: 1 on 03/24/2015 at [facility] Right: Knee [employer] 04/20/2015 [id number] / / [id number] Left Cutting Guide Explanted:Qty: 1 on 03/24/2015 at [facility] Left: Knee [employer] 04/20/2015 [id number] / / [id number] Procedures * TSH/T4 THYROID SCREEN(Performed 02/06/2023) Performed for Parkinson disease (CMS/HCC), Hallucination, Generalized anxiety disorder * PAIN MANAGEMENT PROCEDURE TIME(Performed 01/01/2023) Performed for Lumbar radiculopathy * PAIN MANAGEMENT PROCEDURE TIME(Performed 06/13/2022) Performed for Lumbar radiculopathy * XR HIP RIGHT 2VW OR MORE(Performed 01/30/2021) Performed for Hip pain * NM BRAIN IMAGING GISSELLE SCAN(Performed 12/23/2020) Performed for Parkinson disease * MRI LUMBAR SPINE WO CONTRAST(Performed 12/21/2020) Performed for Spinal stenosis of lumbar region with neurogenic claudication * MRI HIP RIGHT WO CONTRAST(Performed 12/21/2020) Performed for Hip pain * US ABDOMEN COMPLETE(Performed 07/22/2020) * NC DESTROY PREMALIG LESION, 1ST LESION(Performed 12/06/2019) Performed for Actinic keratosis * NC DESTROY PREMALIG LESION, 2-14(Performed 12/06/2019) Performed for Actinic keratosis * XR KNEE RIGHT 3VW(Performed 06/26/2019) Performed for Chronic pain of right knee * XR KNEE RIGHT 3VW(Performed 11/05/2018) Performed for Right knee pain, unspecified chronicity * XR KNEE RIGHT 3VW(Performed 05/07/2018) 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 * XR KNEE RIGHT 3VW(Performed 02/19/2018) 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 * XR KNEE RIGHT 2VW OR LESS(Performed 12/18/2017) 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 * CARDIAC RHYTHM STRIP ORDER(Performed 11/08/2017) * IMAGING/RADIOLOGY/XRAY RESULTS ORDER(Performed 11/08/2017) * GLUCOSE - POINT OF CARE(Performed 11/07/2017) * GLUCOSE - POINT OF CARE(Performed 11/07/2017) * HGB HCT PANEL(Performed 11/07/2017) * BASIC METABOLIC PANEL (CALCIUM TOTAL)(Performed 11/07/2017) * GLUCOSE - POINT OF CARE(Performed 11/06/2017) * GLUCOSE - POINT OF CARE(Performed 11/06/2017) * GLUCOSE - POINT OF CARE(Performed 11/06/2017) * GLUCOSE - POINT OF CARE(Performed 11/06/2017) * HGB HCT PANEL(Performed 11/06/2017) * PERIPHERAL BLOCK(Performed 11/05/2017) * ARTHROPLASTY PATELLA(Performed 11/05/2017) * GLUCOSE - POINT OF CARE(Performed 11/05/2017) * HEMOGLOBIN A1C(Performed 11/05/2017) * GLUCOSE - POINT OF CARE(Performed 11/05/2017) * PT PTT PANEL(Performed 11/04/2017) * COMPREHENSIVE METABOLIC PANEL(Performed 11/04/2017) * CBC W AUTO DIFFERENTIAL(Performed 11/04/2017) * XR KNEE RIGHT 3VW(Performed 11/04/2017) Performed for Chronic pain of right knee * IMAGING/RADIOLOGY/XRAY RESULTS ORDER(Performed 03/28/2015) * CARDIAC ECHOCARDIOGRAM COMPLETE ORDER(Performed 03/28/2015) * CARDIAC RHYTHM STRIP ORDER(Performed 03/28/2015) * GLUCOSE - POINT OF CARE(Performed 03/27/2015) * GLUCOSE - POINT OF CARE(Performed 03/27/2015) * GLUCOSE - POINT OF CARE(Performed 03/26/2015) * GLUCOSE - POINT OF CARE(Performed 03/26/2015) * GLUCOSE - POINT OF CARE(Performed 03/26/2015) * BASIC METABOLIC PANEL (CALCIUM TOTAL)(Performed 03/26/2015) * HGB HCT PANEL(Performed 03/26/2015) * GLUCOSE - POINT OF CARE(Performed 03/26/2015) * GLUCOSE - POINT OF CARE(Performed 03/25/2015) * GLUCOSE - POINT OF CARE(Performed 03/25/2015) * GLUCOSE - POINT OF CARE(Performed 03/25/2015) * GLUCOSE - POINT OF CARE(Performed 03/25/2015) * HEMOGLOBIN A1C(Performed 03/25/2015) * HGB HCT PANEL(Performed 03/25/2015) * GLUCOSE - POINT OF CARE(Performed 03/25/2015) * GLUCOSE - POINT OF CARE(Performed 03/24/2015) * GLUCOSE - POINT OF CARE(Performed 03/24/2015) * PATHOLOGY TISSUE EXAM (STL)(Performed 03/24/2015) Performed for Osteoarthrosis, unspecified whether generalized or localized, lower leg [715.96] * URINALYSIS REFLEX MICROSCOPIC REFLEX CULTURE(Performed 03/24/2015) Performed for Osteoarthrosis, unspecified whether generalized or localized, lower leg [715.96] * ARTHROPLASTY TOTAL KNEE (BILATERAL)(Performed 03/24/2015) Performed for Osteoarthrosis, unspecified whether generalized or localized, lower leg * PERIPHERAL BLOCK(Performed 03/24/2015) * PERIPHERAL BLOCK(Performed 03/24/2015) * PT PTT PANEL(Performed 03/24/2015) * BLOOD TYPE ABO+ RH PANEL(Performed 03/24/2015) * CROSSMATCH RBC LEUKOREDUCED(Performed 03/24/2015) * APHERESIS/TRANSFUSION ORDER(Performed 03/12/2015) * XR CHEST 2VW(Performed 03/10/2015) Performed for Pre-op testing * BLOOD TYPE VERIFICATION(Performed 03/10/2015) * TYPE + SCREEN PANEL(Performed 03/10/2015) Performed for Preoperative examination, unspecified * COMPREHENSIVE METABOLIC PANEL(Performed 03/10/2015) Performed for Preoperative examination, unspecified * CBC W AUTO DIFFERENTIAL(Performed 03/10/2015) Performed for Preoperative examination, unspecified * CULTURE MSSA/MRSA(Performed 03/10/2015) Performed for Preoperative examination, unspecified * EKG 12-LEAD(Performed 03/10/2015) Performed for Preoperative examination, unspecified * MRI KNEE LEFT WO CONTRAST(Performed 01/20/2015) Performed for DJD (degenerative joint disease) of knee * MRI KNEE RIGHT WO CONTRAST(Performed 01/20/2015) Performed for DJD (degenerative joint disease) of knee * XR BONE LENGTH SCANOGRAM(Performed 01/20/2015) Performed for DJD (degenerative joint disease) of knee Results * TSH/T4 THYROID SCREEN (02/06/2023 1:32 PM CDT) TSH 1.870 0.450 - 4.500 uIU/mL [facility] INSURANCE BILL T4 Total 7.1 4.5 - 12.0 ug/dL [facility] INSURANCE BILL Blood BLOOD SPECIMEN / Unknown 02/06/2023 1:32 PM CDT 02/06/2023 Narrative Resulting Agency Comment Lab Testing performed at: [facility] [address] [id number] Bobby Griffin MD LAB - [facility] INSURANCE BILL [address] [place] [address] * PAIN MANAGEMENT PROCEDURE TIME (01/01/2023 11:20 AM CDT) Only the most recent of2 resultswithin the time period is included. Narrative [facility] - 01/01/2023 11:24 AM CDT For operative/procedure details, please see notes section. Walt Leone MD DIAGNOSTIC IMAGING O [facility] [address] [place] [address] * XR HIP RIGHT 2VW OR MORE (01/30/2021 11:24 AM CDT) Anatomical Region Laterality Modality Pelvis, Lower Extremity Computed Radiography Narrative 01/30/2021 11:25 AM CDT Nidia Morales 02/05/2021 7:30 AM Please see progress notes for xray results Bashir Bonilla IV, MD DIAGNOSTIC IMAGING [place] * NM BRAIN IMAGING GISSELLE SCAN (12/23/2020 1:42 PM DIRECTOR OF RETENTION) Anatomical Region Laterality Modality Head Nuclear Medicine 12/23/2020 2:32 PM DIRECTOR OF RETENTION Narrative 12/23/2020 2:33 PM DIRECTOR OF RETENTION Nuclear medicine GISSELLE scan HISTORY: Gait Abnormality TECHNIQUE: I-123 5 mCi was administered and images of the brain performed FINDINGS: There is truncation of the posterior basal ganglia bilaterally which would support a clinical diagnosis of Parkinson's disease. *Reading Radiologist: Vlad Lane on 12/23/2020 at 2:33 PM Procedure Note Vlad Lane MD - 12/23/2020 Nuclear medicine GISSELLE scan HISTORY: Gait Abnormality TECHNIQUE: I-123 5 mCi was administered and images of the brain performed FINDINGS: There is truncation of the posterior basal ganglia bilaterally which would support a clinical diagnosis of Parkinson's disease. *Reading Radiologist: Vlad Lane on 12/23/2020 at 2:33 PM Bobby Griffin MD NM ORDERABLES * MRI LUMBAR SPINE WO CONTRAST (12/21/2020 1:08 PM DIRECTOR OF RETENTION) Anatomical Region Laterality Modality Spine Magnetic Resonan ce 12/21/2020 2:06 PM DIRECTOR OF RETENTION Impressions 12/21/2020 2:15 PM DIRECTOR OF RETENTION Multilevel degenerative/degenerative disc disease changes creating varying degrees of central canal, lateral recess and neuroforaminal encroachment as described the individual disc levels above *Reading Radiologist: Aamir Romero on 12/21/2020 at 2:15 PM Narrative 12/21/2020 2:15 PM DIRECTOR OF RETENTION EXAM: MRI Lumbar Spine without contrast INDICATION: Spinal stenosis, lumbar region with neurogenic claudication COMPARISON: None Available TECHNIQUE: Multiplanar, multisequence magnetic resonance imaging of the lumbar spine performed without contrast FINDINGS: There is no compression or subluxation. There is no marrow infiltrative process. The conus ends normally at the L1-L2 level and is normal in size and signal. There is no paraspinal mass or fluid collection. Intervertebral disc space heights are maintained throughout the lumbar spine. Review of the axial imaging at each individual disc level shows: L1-L2: Minimal annular bulging and bilateral facet arthropathy with no central canal or foraminal stenosis L2-L3: Annular bulging and bilateral facet arthropathy with mild bilateral foraminal stenosis but no central canal stenosis L3-L4: Annular bulging and bilateral facet arthropathy with mild central canal stenosis, bilateral lateral recess stenosis and moderate bilateral foraminal stenosis L4-L5: Annular bulging with superimposed small central annular tear along with bilateral facet arthropathy and ligamentum flavum hypertrophy creating moderate central canal stenosis, bilateral lateral recess stenosis and bilateral foraminal stenosis L5-S1: Annular bulging and bilateral facet arthropathy without central canal or foraminal stenosis Procedure Note Aamir Romero MD - 12/21/2020 EXAM: MRI Lumbar Spine without contrast INDICATION: Spinal stenosis, lumbar region with neurogenic claudication COMPARISON: None Available TECHNIQUE: Multiplanar, multisequence magnetic resonance imaging of the lumbar spine performed without contrast FINDINGS: There is no compression or subluxation. There is no marrow infiltrative process. The conus ends normally at the L1-L2 level and is normal in size and signal. There is no paraspinal mass or fluid collection. Intervertebral disc space heights are maintained throughout the lumbar spine. Review of the axial imaging at each individual disc level shows: L1-L2: Minimal annular bulging and bilateral facet arthropathy with no central canal or foraminal stenosis L2-L3: Annular bulging and bilateral facet arthropathy with mild bilateral foraminal stenosis but no central canal stenosis L3-L4: Annular bulging and bilateral facet arthropathy with mild central canal stenosis, bilateral lateral recess stenosis and moderate bilateral foraminal stenosis L4-L5: Annular bulging with superimposed small central annular tear along with bilateral facet arthropathy and ligamentum flavum hypertrophy creating moderate central canal stenosis, bilateral lateral recess stenosis and bilateral foraminal stenosis L5-S1: Annular bulging and bilateral facet arthropathy without central canal or foraminal stenosis IMPRESSION Multilevel degenerative/degenerative disc disease changes creating varying degrees of central canal, lateral recess and neuroforaminal encroachment as described the individual disc levels above *Reading Radiologist: Aamir Romero on 12/21/2020 at 2:15 PM Bobby Griffin MD MR ORDERABLES * MRI HIP RIGHT WO CONTRAST (12/21/2020 12:51 PM DIRECTOR OF RETENTION) Anatomical Region Laterality Modality Lower Extremity Magnetic Resonan ce 12/21/2020 2:02 PM DIRECTOR OF RETENTION Impressions 12/21/2020 3:04 PM DIRECTOR OF RETENTION 6 X 7.5 MM HIGH-GRADE CHONDROMALACIA SUPEROLATERAL ASPECT OF THE RIGHT HIP JOINT. Edited by Vika Babin on 12/21/2020 2:22 PM *Reading Radiologist: William Dallas on 12/21/2020 at 3:04 PM Narrative 12/21/2020 3:04 PM DIRECTOR OF RETENTION MRI RIGHT HIP WITHOUT CONTRAST CLINICAL INDICATION: Chronic worsening right hip pain and limited range of motion. COMPARISON: None available. TECHNIQUE: Multiplanar multisequence MR imaging of the right hip was performed without contrast. Left hip joint is included for comparison on the axial and coronal sequences. FINDINGS: 6 x 7.5 mm high-grade chondromalacia involving the superolateral aspect of the right hip joint. This affects both the femoral head and acetabulum. The remainder of the articular cartilage of the right hip joint is normal in thickness and intact. Anatomic alignment of the right hip joint. No bone marrow edema. No acute or subacute fracture. No avascular necrosis. No joint effusion. Signal of the hamstring, gluteal, iliopsoas, rectus femora, and adductor tendons are within normal limits. Iliofemoral ligament, ischiofemoral ligament, and ligamentum teres are intact. Acetabular labrum normal in signal and morphology. No paralabral ganglion cysts. Signal of the musculature normal. Signal of the neurovascular structures normal. No mass lesions. Procedure Note William Dallas MD - 12/21/2020 MRI RIGHT HIP WITHOUT CONTRAST CLINICAL INDICATION: Chronic worsening right hip pain and limited range of motion. COMPARISON: None available. TECHNIQUE: Multiplanar multisequence MR imaging of the right hip was performed without contrast. Left hip joint is included for comparison on the axial and coronal sequences. FINDINGS: 6 x 7.5 mm high-grade chondromalacia involving the superolateral aspect of the right hip joint. This affects both the femoral head and acetabulum. The remainder of the articular cartilage of the right hip joint is normal in thickness and intact. Anatomic alignment of the right hip joint. No bone marrow edema. No acute or subacute fracture. No avascular necrosis. No joint effusion. Signal of the hamstring, gluteal, iliopsoas, rectus femora, and adductor tendons are within normal limits. Iliofemoral ligament, ischiofemoral ligament, and ligamentum teres are intact. Acetabular labrum normal in signal and morphology. No paralabral ganglion cysts. Signal of the musculature normal. Signal of the neurovascular structures normal. No mass lesions. IMPRESSION 6 X 7.5 MM HIGH-GRADE CHONDROMALACIA SUPEROLATERAL ASPECT OF THE RIGHT HIP JOINT. Edited by Vika Babin on 12/21/2020 2:22 PM *Reading Radiologist: William Dallas on 12/21/2020 at 3:04 PM Bobby Griffin MD MR ORDERABLES * US ABDOMEN COMPLETE (07/22/2020) Anatomical Region Laterality Modality Abdomen Ultrasound Provider Unknown US ORDERABLES * XR KNEE RIGHT 3VW (06/26/2019 2:16 PM CDT) Only the most recent of5 resultswithin the time period is included. Anatomical Region Laterality Modality Lower Extremity Radiographic Ivis ging Narrative 06/26/2019 2:16 PM CDT [place], Gloria 07/03/2019 9:21 PM Please see progress note for results. Brendan Abdalla MD DIAGNOSTIC IMAGING O RDERABLES * XR KNEE RIGHT 2VW OR LESS (12/18/2017 3:13 PM DIRECTOR OF RETENTION) Anatomical Region Laterality Modality Lower Extremity Radiographic Ivis ging Narrative 12/18/2017 4:08 PM DIRECTOR OF RETENTION Gloria Vann 12/18/2017 4:08 PM Please see progress note for results. Brendan Abdalla MD DIAGNOSTIC IMAGING O RDERABLES * CARDIAC RHYTHM STRIP ORDER (11/08/2017 5:26 PM DIRECTOR OF RETENTION) Only the most recent of2 resultswithin the time period is included. Narrative 11/08/2017 5:26 PM DIRECTOR OF RETENTION Ordered by an unspecified provider. Scanned Document CARDIAC SERVICES ORD ERABLES * IMAGING/RADIOLOGY/XRAY RESULTS ORDER (11/08/2017 12:41 PM DIRECTOR OF RETENTION) Only the most recent of2 resultswithin the time period is included. Anatomical Region Laterality Modality Other Narrative 11/08/2017 12:41 PM DIRECTOR OF RETENTION Ordered by an unspecified provider. Scanned Document IMAGING * (ABNORMAL) GLUCOSE - POINT OF CARE (11/07/2017 11:37 AM DIRECTOR OF RETENTION) Only the most recent of21 resultswithin the time period is included. Glucose WB/POC 166(H) 70 - 106 mg/dL 11/08/2017 4:18 AM DIRECTOR OF RETENTION [facility] Blood BLOOD SPECIMEN / Unknown 11/07/2017 11:37 AM DIRECTOR OF RETENTION 11/08/2017 4:18 AM DIRECTOR OF RETENTION Robbi Bowles MD LAB - POINT OF CARE ORDERABLES [facility] [address] [place] [address] * (ABNORMAL) HGB HCT PANEL (11/07/2017 6:40 AM DIRECTOR OF RETENTION) Only the most recent of4 resultswithin the time period is included. Hemoglobin 11.6(L) 12.0 - 15.6 gm/dL 11/07/2017 7:[address] [facility] Hematocrit 33.4(L) 35.9 - 45.5 % 11/07/2017 7:[address] [facility] Blood BLOOD SPECIMEN / Unknown Lab Venipuncture / Unknown 11/07/2017 6:40 AM DIRECTOR OF RETENTION 11/07/2017 6:56 AM DIRECTOR OF RETENTION Brendan Abdalla MD LAB - HEMATOLOGY ORD ERABLES [facility] [address] [place] [address] * (ABNORMAL) BASIC METABOLIC PANEL (CALCIUM TOTAL) (11/07/2017 6:40 AM DIRECTOR OF RETENTION) Only the most recent of2 resultswithin the time period is included. Glucose 141(H) 74 - 106 mg/dL 11/07/2017 7:[address] [facility] Sodium 141 136 - 145 mmol/L 11/07/2017 7:[address] [facility] Potassium 3.9 3.5 - 5.1 mmol/L 11/07/2017 7:[address] [facility] Chloride 105 98 - 107 mmol/L 11/07/2017 7:[address] [facility] CO2 26 22 - 31 mmol/L 11/07/2017 7:[address] [facility] Calcium 8.0(L) 8.5 - 10.1 mg/dL 11/07/2017 7:[address] [facility] Anion Gap 10 8 - 16 mmol/L 11/07/2017 7:[address] [facility] BUN 16 7 - 21 mg/dL 11/07/2017 7:[address] [facility] Creatinine 1.05 0.50 - 1.30 mg/dL 11/07/2017 7:[address] [facility] eGFR by MDRD 53(L) >60 mL/min/1.7 3m2 11/07/2017 7:[address] [facility] eGFR by MDRD >60 >60 mL/min/1.7 3m2 11/07/2017 7:28 AM DIRECTOR OF RETENTION [facility] Blood BLOOD SPECIMEN / Unknown Lab Venipuncture / Unknown 11/07/2017 6:40 AM DIRECTOR OF RETENTION 11/07/2017 6:57 AM DIRECTOR OF RETENTION Brendan Abdalla MD LAB - CHEMISTRY PRISCILA DYER Performing Organization Address [facility]/ZIP Co de Phone Number [facility] [address] [place], [place] [id number] * (ABNORMAL) HEMOGLOBIN A1C (11/05/2017 6:37 AM DIRECTOR OF RETENTION) Only the most recent of2 resultswithin the time period is included. Hemoglobin A1c 7.4(H) 4.2 - 6.3 % 11/05/2017 7:[address] [facility] Estimated Average Glucose 166 mg/dL 11/05/2017 7:[address] [facility] Whole Blood BLOOD SPECIMEN WITH EDTA / Unknown Lab Venipuncture / Unknown 11/05/2017 6:37 AM DIRECTOR OF RETENTION 11/05/2017 6:54 AM DIRECTOR OF RETENTION Robbi Bowles MD LAB - CHEMISTRY PRISCILA DYER Performing Organization Address [facility] Co de Phone Number [facility] [address] [place], [place] [id number] * PT PTT PANEL (11/04/2017 9:22 PM DIRECTOR OF RETENTION) Only the most recent of2 resultswithin the time period is included. PT 10.3 9.5 - 11.6 sec 11/04/2017 9:[address] [facility] INR 1.0 0.9 - 1.1 11/04/2017 9:[address] [facility] PTT 22.1 21.0 - 32.0 sec 11/04/2017 9:[address] [facility] Blood BLOOD SPECIMEN / Unknown Lab Venipuncture / Unknown 11/04/2017 9:22 PM DIRECTOR OF RETENTION 11/04/2017 9:26 PM DIRECTOR OF RETENTION Narrative [facility] - 11/04/2017 9:38 PM DIRECTOR OF RETENTION Conventional Warfarin Anticoagulant Therapy: INR Reference Range: 2.0-3.0 Intensive Warfarin Anticoagulant Therapy: INR Reference Range: 2.5-3.5 Heparin Therapeutic Range for PTT: 47.7 - 68.6 seconds. Robbi Bowles MD LAB - COAGULATION OR DERABLES [facility] [address] [place] [address] * (ABNORMAL) CBC W AUTO DIFFERENTIAL (11/04/2017 9:22 PM [facility]) Only the most recent of2 resultswithin the time period is included. WBC 7.2 4.4 - 10.7 x10E9/L 11/04/2017 9:[address] [facility] WBC Corrected x10E9/L 11/04/2017 9:[address] [facility] RBC 3.89 3.80 - 5.20 x10E12/L 11/04/2017 9:[address] [facility] Hemoglobin 12.5 12.0 - 15.6 gm/dL 11/04/2017 9:[address] [facility] Hematocrit 36.5 35.9 - 45.5 % 11/04/2017 9:[address] [facility] MCV 93.8 80.7 - 98.3 fl 11/04/2017 9:[address] [facility] MCH 32.1 26.7 - 34.0 pg 11/04/2017 9:[address] [facility] MCHC 34.2 30.8 - 35.9 gm/dL 11/04/2017 9:[address] [facility] Platelet Count 137(L) 153 - 416 x10E9/L 11/04/2017 9:[address] [facility] RDW-CV 12.8 12.1 - 14.9 % 11/04/2017 9:[address] [facility] MPV 9.9 9.4 - 12.9 fl 11/04/2017 9:[address] [facility] Neutrophils % 54.8 44.0 - 73.0 % 11/04/2017 9:[address] [facility] Lymphocytes % 32.2 20.0 - 43.0 % 11/04/2017 9:[address] [facility] Monocytes % 8.4 5.0 - 13.0 % 11/04/2017 9:[address] [facility] Eosinophils % 3.6 0.0 - 6.0 % 11/04/2017 9:[address] [facility] Basophils % 0.6 0.0 - 2.0 % 11/04/2017 9:[address] [facility] Immature Granulocytes 0.4 0 - 1 % 11/04/2017 9:[address] [facility] Neutrophil Absolute 3.92 2.01 - 7.14 x10E9/L 11/04/2017 9:[address] [facility] Lymphocytes Absolute 2.30 1.07 - 3.94 x10E9/L 11/04/2017 9:[address] [facility] Monocytes Absolute 0.60 0.26 - 1.07 x10E9/L 11/04/2017 9:[address] [facility] Eosinophils Absolute 0.26 0 - 0.47 x10E9/L 11/04/2017 9:[address] [facility] Basophils Absolute 0.04 0 - 0.08 x10E9/L 11/04/2017 9:[address] [facility] Immature Granulocytes Absolute 0.03 0.00 - 0.06 x10E9/L 11/04/2017 9:[address] [facility] nRBC Auto 0 /100 WBC 11/04/2017 9:[address] [facility] Blood BLOOD SPECIMEN / Unknown Lab Venipuncture / Unknown 11/04/2017 9:22 PM DIRECTOR OF RETENTION 11/04/2017 9:26 PM [facility] Robbi Bowles MD LAB - HEMATOLOGY ORD ERABLES [facility] [address] [place] [address] * (ABNORMAL) COMPREHENSIVE METABOLIC PANEL (11/04/2017 9:22 PM [facility]) Only the most recent of2 resultswithin the time period is included. [facility] Signature Glucose 120(H) 74 - 106 mg/dL 11/04/2017 9:[address] [facility] Sodium 142 136 - 145 mmol/L 11/04/2017 9:[address] [facility] Potassium 3.8 3.5 - 5.1 mmol/L 11/04/2017 9:[address] [facility] Chloride 106 98 - 107 mmol/L 11/04/2017 9:[address] [facility] CO2 27 22 - 31 mmol/L 11/04/2017 9:[address] [facility] Calcium 8.4(L) 8.5 - 10.1 mg/dL 11/04/2017 9:[address] [facility] Anion Gap 9 8 - 16 mmol/L 11/04/2017 9:[address] [facility] BUN 21 7 - 21 mg/dL 11/04/2017 9:[address] [facility] Creatinine 1.09 0.50 - 1.30 mg/dL 11/04/2017 9:[address] [facility] Alkaline Phosphatase 76 38 - 126 U/L 11/04/2017 9:[address] [facility] ALT 20 13 - 61 U/L 11/04/2017 9:[address] [facility] AST 35 5 - 40 U/L 11/04/2017 9:[address] [facility] Protein Total 7.1 6.4 - 8.2 gm/dL 11/04/2017 9:[address] [facility] Albumin 3.5 3.4 - 5.0 gm/dL 11/04/2017 9:[address] [facility] Bilirubin Total 0.7 0.2 - 1.0 mg/dL 11/04/2017 9:[address] [facility] eGFR by MDRD 51(L) >60 mL/min/1.7 3m2 11/04/2017 9:[address] [facility] eGFR by MDRD >60 >60 mL/min/1.7 3m2 11/04/2017 9:[address] [facility] Blood BLOOD SPECIMEN / Unknown Lab Venipuncture / Unknown 11/04/2017 9:22 PM [facility] 11/04/2017 9:26 PM [facility] Robbi Bowles MD LAB - CHEMISTRY PRISCILA DYER [facility] Organization Address City/State/ZIP Co de Phone Number [facility] [address] [address] * CARDIAC ECHOCARDIOGRAM COMPLETE ORDER (03/28/2015 5:55 PM CDT) Narrative 03/28/2015 5:55 PM CDT Ordered by an unspecified provider. Scanned Document ECHO ORDERABLES * GROSS + MICRO EXAM (STL) (03/24/2015 3:33 PM CDT) Case Report Surgical Pathology Report Case: [id number] Authorizing Provider: Brendan Abdalla MD Collected: 03/24/2015 03:33 PM Ordering Location: [facility] Received: 03/25/2015 08:06 AM Pathologist: Roma Lizarraga MD Specimens: A) - Bone Knee, Right knee, bone and tissue, gross only B) - Bone Knee, Left knee, bone and tissue, gross only 03/28/2015 4:24 PM CDT [facility] Final Diagnosis Bone, right knee, excision: - Degenerative joint disease Bone, left knee, excision: - Degenerative joint disease NEW/chata 03/28/2015 4:24 PM CDT [facility] Gross Description Two specimen are received in formalin labeled, Sheila Westfall. A - Right knee bone and tissue, multiple fragments of corado bone with an aggregate measurement of 7.5 x 5.5 x 2.8 cm. There are no pieces of soft tissue or articular material in the container. The articular surface is irregular and there is evidence of eburnation on the surface. A footwear sales representative section of bone is submitted in A1 for decalcification. B - Left knee bone and tissue, multiple fragments of yellow and corado bone without cartilaginous or adipose tissue measuring 7.5 x 5.5 x 2.8 cm in aggregate are received. The articular surface is eburnated. There is no cartilaginous material in the container. A footwear sales representative section of this bone is submitted in B1 for decalcification. LS/na 03/28/2015 4:24 PM CDT [facility] Microscopic Description Histologic sections of the bilateral knees show bone with irregular articular surfaces, consistent with degenerative joint disease. There is no evidence of malignancy. [place] 03/28/2015 4:24 PM CDT [facility] Pathology/Cytology BONE STRUCTURE OF KNEE JOINT REGION / Unknown 03/24/2015 3:33 PM CDT 03/25/2015 8:06 AM CDT Miscellaneous samples (specimen) BONE STRUCTURE OF KNEE JOINT REGION / Unknown 03/24/2015 3:33 PM CDT 03/25/2015 8:06 AM CDT Brendan Abdalla MD LAB - PATHOLOGY/CYTO LOGY ORDERABLES [facility] [address] [id number] * URINALYSIS ROUTINE W/REFLEX TO CULTURE (03/24/2015 2:45 PM CDT) Color UA Yellow Straw, Yellow, Dark Yellow 03/24/2015 7:20 PM CDT [facility] Clarity UA Clear 03/24/2015 7:20 PM CDT [facility] Specific [place] UA 1.022 1.005 - 1.030 03/24/2015 7:20 PM CDT [facility] pH UA 5.0 5.0 - 8.0 pH 03/24/2015 7:20 PM CDT [facility] Protein UA Negative Negative 03/24/2015 7:20 PM CDT [facility] Blood UA Negative Negative 03/24/2015 7:20 PM CDT [facility] Leukocyte UA Negative Negative 03/24/2015 7:20 PM CDT [facility] Nitrite UA Negative Negative 03/24/2015 7:20 PM CDT [facility] Glucose UA Negative Negative 03/24/2015 7:20 PM CDT [facility] Ketone UA Negative Negative 03/24/2015 7:20 PM CDT [facility] Bilirubin UA Negative Negative 03/24/2015 7:20 PM CDT [facility] Urobilinogen UA 0.2 0.1 - 1.0 EU/dL 03/24/2015 7:20 PM CDT [facility] Reflex Status Culture not indicated 03/24/2015 7:20 PM CDT [facility] Urine URINE SPECIMEN OBTAINED VIA INDWELLING URINARY CATHETER / Unknown 03/24/2015 2:45 PM CDT 03/24/2015 7:05 PM CDT Brendan Abdalla MD LAB - URINALYSIS ORD ERABLES [facility] [address] [address] * PERIPHERAL BLCOK (03/24/2015 1:11 PM CDT) Tor Trivedi MD - 03/24/2015 1:11 PM CDT Tor Mendoza MD 03/24/2015 1:11 PM Peripheral Block Patient Location: pre-op Pre Procedure Indication: at surgeon's request and post-operative analgesia Preanesthetic Checklist: patient identified, IV checked, site marked, risks and benefits discussed, surgical consent verified, monitors and equipment checked, pre-op evaluation done, timeout performed, informed consent obtained and questions answered / anesthesia plan accepted Monitors: Pulse Ox Patient Condition: sedated, meaningful contact maintained Patient Position: supine Procedure Laterality: left Block Performed: adductor canal Prep: Chloraprep Sterile Field: sterile field established and sterile gloves Skin Numbed with: lidocaine 1% Needle Type: echogenic Needle Gauge: 21 Needle Length: 100 mm Ultrasound guided Technique: out of plane Visualization: target ID'd, good spread of local around target and Ultrasound image in chart Block Agent: ropivacaine 0.5% 20 mL Other Additives: clonidine 50 mcg Events blood not aspirated injection not painful no injection resistance no paresthesia Block Start Time: 03/24/2015 12:33 PM Block End Time: 03/24/2015 12:41 PM Block Performed by: Dr Mendoza Peripheral Block Patient Location: pre-op Pre Procedure Indication: at surgeon's request and post-operative analgesia Preanesthetic Checklist: patient identified, IV checked, site marked, risks and benefits discussed, surgical consent verified, monitors and equipment checked, pre-op evaluation done, timeout performed, informed consent obtained and questions answered / anesthesia plan accepted Monitors: Pulse Ox Patient Condition: sedated, meaningful contact maintained Patient Position: supine Procedure Laterality: right Block Performed: adductor canal Prep: Chloraprep Sterile Field: sterile field established and sterile gloves Skin Numbed with: lidocaine 1% Needle Type: echogenic Needle Gauge: 21 Needle Length: 100 mm Ultrasound guided Technique: out of plane Visualization: target ID'd, good spread of local around target and Ultrasound image in chart Block Agent: ropivacaine 0.5% 20 mL Other Additives: clonidine 100 mcg Events blood not aspirated injection not painful no injection resistance no paresthesia Block Start Time: 03/24/2015 12:45 PM Block End Time: 03/24/2015 12:47 PM Block Performed by: Dr Mendoza Tor Mendoza MD GENERAL ANESTH ESIA ORDERABLES * PERIPHERAL BLCOK (03/24/2015 1:11 PM CDT) Tor Trivedi MD - 03/24/2015 1:11 PM CDT Tor Mendoza MD 03/24/2015 1:11 PM Peripheral Block Patient Location: pre-op Pre Procedure Indication: at surgeon's request and post-operative analgesia Preanesthetic Checklist: patient identified, IV checked, site marked, risks and benefits discussed, surgical consent verified, monitors and equipment checked, pre-op evaluation done, timeout performed, informed consent obtained and questions answered / anesthesia plan accepted Monitors: Pulse Ox Patient Condition: sedated, meaningful contact maintained Patient Position: supine Procedure Laterality: left Block Performed: adductor canal Prep: Chloraprep Sterile Field: sterile field established and sterile gloves Skin Numbed with: lidocaine 1% Needle Type: echogenic Needle Gauge: 21 Needle Length: 100 mm Ultrasound guided Technique: out of plane Visualization: target ID'd, good spread of local around target and Ultrasound image in chart Block Agent: ropivacaine 0.5% 20 mL Other Additives: clonidine 50 mcg Events blood not aspirated injection not painful no injection resistance no paresthesia Block Start Time: 03/24/2015 12:33 PM Block End Time: 03/24/2015 12:41 PM Block Performed by: Dr Mendoza Peripheral Block Patient Location: pre-op Pre Procedure Indication: at surgeon's request and post-operative analgesia Preanesthetic Checklist: patient identified, IV checked, site marked, risks and benefits discussed, surgical consent verified, monitors and equipment checked, pre-op evaluation done, timeout performed, informed consent obtained and questions answered / anesthesia plan accepted Monitors: Pulse Ox Patient Condition: sedated, meaningful contact maintained Patient Position: supine Procedure Laterality: right Block Performed: adductor canal Prep: Chloraprep Sterile Field: sterile field established and sterile gloves Skin Numbed with: lidocaine 1% Needle Type: echogenic Needle Gauge: 21 Needle Length: 100 mm Ultrasound guided Technique: out of plane Visualization: target ID'd, good spread of local around target and Ultrasound image in chart Block Agent: ropivacaine 0.5% 20 mL Other Additives: clonidine 100 mcg Events blood not aspirated injection not painful no injection resistance no paresthesia Block Start Time: 03/24/2015 12:45 PM Block End Time: 03/24/2015 12:47 PM Block Performed by: Dr Mendoza Tor Mendoza MD GENERAL ANESTH ESIA ORDERABLES * CROSSMATCH RBC (03/24/2015 10:41 AM CDT) Unit Donor # [id number] -W 03/25/2015 12:29 AM CDT [facility] Product Code E0336 03/25/2015 12:29 AM CDT [facility] Unit Description E0336 RBC, LR, CPD>AS1 03/25/2015 12:29 AM CDT [facility] ABO Donor Type A 03/25/2015 12:29 AM CDT [facility] Rh Type Unit NEG 03/25/2015 12:29 AM CDT [facility] Crossmatch Interpretation Compatible 03/25/2015 12:29 AM CDT [facility] Unit Status Returned 03/25/2015 12:29 AM CDT [facility] Blood Bank BLOOD SPECIMEN / Unknown 03/24/2015 10:41 AM CDT 03/24/2015 10:42 AM CDT Brendan Abdalla MD LAB - BLOOD BANK ORD ERABLES [facility] [address] * BLOOD TYPE ABO+ RH PANEL (03/24/2015 10:41 AM CDT) ABO A 03/24/2015 10:55 AM CDT [facility] Rh Type Negative 03/24/2015 10:55 AM CDT [facility] Blood Bank BLOOD SPECIMEN / Unknown 03/24/2015 10:41 AM CDT 03/24/2015 10:42 AM CDT Brendan Abdalla MD LAB - BLOOD BANK ORD ERABLES [facility] [address] [place] [address], [facility] * ANTIBODY SCREEN (03/24/2015 10:41 AM CDT) Blood Bank BLOOD SPECIMEN / Unknown 03/24/2015 10:41 AM CDT 03/24/2015 10:42 AM CDT Brendan Abdalla MD LAB - BLOOD BANK ORD ERABLES [facility] [address] [place] [address], [facility] * APHERESIS/TRANSFUSION ORDER (03/12/2015 9:06 AM CDT) Narrative 03/12/2015 9:06 AM CDT Ordered by an unspecified provider. Scanned Document NURSING - VITAL SIGN S AND ASSESSMENT * XR CHEST PA AND LATERAL (03/10/2015 11:11 AM CDT) Anatomical Region Laterality Modality Chest Radiographic Ivis ging 03/10/2015 12:2 8 PM CDT Impressions 03/10/2015 12:28 PM CDT Normal two-view chest x-ray. Narrative 03/10/2015 12:28 PM CDT PA AND LATERAL CHEST INDICATION: Preop knee surgery FINDINGS: PA and lateral views of the chest show the lungs to be expanded and clear. The cardiac and mediastinal silhouettes and pulmonary vascularity are within normal limits. Procedure Note Brenda Parker MD - 03/10/2015 PA AND LATERAL CHEST INDICATION: Preop knee surgery FINDINGS: PA and lateral views of the chest show the lungs to be expanded and clear. The cardiac and mediastinal silhouettes and pulmonary vascularity are within normal limits. IMPRESSION Normal two-view chest x-ray. Brendan Abdalla MD DIAGNOSTIC IMAGING O RDERABLES * BLOOD TYPE VERIFICATION (03/10/2015 10:32 AM CDT) ABO A 03/10/2015 11:51 AM CDT [facility] Rh Type Negative 03/10/2015 11:51 AM CDT [facility] Blood Bank BLOOD SPECIMEN / Unknown Collection / Unknown 03/10/2015 10:32 AM CDT 03/10/2015 10:33 AM CDT Brendan Abdalla MD LAB - BLOOD BANK ORD ERABLES [facility] [address] [place] [address], [facility] * (ABNORMAL) CULTURE MSSA/MRSA (03/10/2015 10:12 AM CDT) Culture Negative for MRSA BECKI 03/11/2015 2:13 PM CDT [facility] Culture Staphylococcus aureus (MSSA)(A) BECKI 03/11/2015 2:13 PM CDT [facility] Microbiology SPECIMEN FROM NASAL FOSSAE / Unknown Collection / Unknown 03/10/2015 10:12 AM CDT 03/10/2015 10:16 AM CDT Brendan Abdalla MD LAB - MICROBIOLOGY O RDERABLES Performing Organization Address City/[facility]/ZIP Co de Phone Number [facility] [address] [place] [id number] [place] [address] * TYPE + SCREEN PANEL (03/10/2015 10:12 AM CDT) ABO A 03/10/2015 11:50 AM CDT [facility] Rh Type Negative 03/10/2015 11:50 AM CDT [facility] Comment:History check perfor med. Retype required. Antibody Screen Negative 03/10/2015 11:50 AM CDT [facility] Blood Bank BLOOD SPECIMEN / Unknown Lab Venipuncture / Unknown 03/10/2015 10:12 AM CDT 03/10/2015 10:16 AM CDT Brendan Abdalla MD LAB - BLOOD BANK ORD ERABLES Performing Organization Address City/[facility]/ZIP Co de Phone Number [facility] [address] [place] [address] * EKG 12-LEAD (03/10/2015 9:51 AM CDT) Ventricular Rate 63 BPM [facility] M[facility] Atrial Rate 63 BPM [facility] P-R Interval 162 ms [facility] QRS Duration ms 82 ms [facility] Q-T Interval ms 380 ms [facility] QTC Calculation (Bezet) 388 ms [facility] Calculated P [place] 47 degrees [facility]USE Calculated R [place] 13 degrees [facility] MUSE Calculated T [place] 9 degrees [facility] Interpretation EKG Normal sinus rhythm Normal ECG No previous ECGs available Confirmed by Ken Rutledge ([id number]) on 03/12/2015 6:56:57 AM [facility] MUSE 03/10/2015 9:51 AM CDT 03/12/2015 6:56 AM CDT Brendan Abdalla MD ECG ORDERABLES [facility] * MRI KNEE RIGHT WO CONT (01/20/2015 12:09 PM CDT) Anatomical Region Laterality Modality Lower Extremity Magnetic Resonan ce 01/20/2015 3:46 PM CDT Impressions 01/20/2015 3:55 PM CDT Tricompartmental degenerative change. Preoperative planning images. Edited by Sheila Turpin on 01/20/2015 3:54 PM Narrative 01/20/2015 3:55 PM CDT MRI RIGHT KNEE WITHOUT CONTRAST INDICATION: Knee Pain. TECHNIQUE: Multisequence, multiplanar MRI sequences of the knee without contrast. FINDINGS: The ACL and PCL are intact. The posterior horn of the medial meniscus is torn. The extensor mechanism is preserved. The cartilage of the medial patellar facet is thinned. There is near complete loss of the cartilage of the medial femoral tibial compartment. Procedure Note Vlad Lane MD - 01/20/2015 MRI RIGHT KNEE WITHOUT CONTRAST INDICATION: Knee Pain. TECHNIQUE: Multisequence, multiplanar MRI sequences of the knee without contrast. FINDINGS: The ACL and PCL are intact. The posterior horn of the medial meniscus is torn. The extensor mechanism is preserved. The cartilage of the medial patellar facet is thinned. There is near complete loss of the cartilage of the medial femoral tibial compartment. IMPRESSION Tricompartmental degenerative change. Preoperative planning images. Edited by Sheila Turpin on 01/20/2015 3:54 PM Brendan Abdalla MD MR ORDERABLES * MRI KNEE LEFT WO CONT (01/20/2015 12:09 PM CDT) Anatomical Region Laterality Modality Lower Extremity Magnetic Resonan ce 01/20/2015 3:45 PM CDT Impressions 01/20/2015 3:55 PM CDT Tricompartment degenerative change. Preoperative planning images. Edited by Sheila Turpin on 01/20/2015 3:49 PM Narrative 01/20/2015 3:55 PM CDT MRI LEFT KNEE WITHOUT CONTRAST INDICATION: Preoperative evaluation, knee pain, chronic TECHNIQUE: Multisequence, multiplanar MRI sequences of the knee without contrast. FINDINGS: The anterior horn of the lateral meniscus is torn. The posterior horn is intact. The ACL and PCL are intact. The posterior horn of the medial meniscus is torn. There is a small joint effusion. The extensor mechanism is preserved. The cartilage of the medial patellar facet is significantly thinned. Sclerotic changes are seen in the medial femoral tibial compartments with significant cartilaginous loss as well. Procedure Note Vlad Lane MD - 01/20/2015 MRI LEFT KNEE WITHOUT CONTRAST INDICATION: Preoperative evaluation, knee pain, chronic TECHNIQUE: Multisequence, multiplanar MRI sequences of the knee without contrast. FINDINGS: The anterior horn of the lateral meniscus is torn. The posterior horn is intact. The ACL and PCL are intact. The posterior horn of the medial meniscus is torn. There is a small joint effusion. The extensor mechanism is preserved. The cartilage of the medial patellar facet is significantly thinned. Sclerotic changes are seen in the medial femoral tibial compartments with significant cartilaginous loss as well. IMPRESSION Tricompartment degenerative change. Preoperative planning images. Edited by Sheila Turpin on 01/20/2015 3:49 PM Brendan Abdalla MD MR ORDERABLES * XR BONE LENGTH SCANOGRAM (01/20/2015 11:25 AM CDT) Anatomical Region Laterality Modality Lower Extremity, [facility] 01/20/2015 4:33 PM CDT Narrative 01/20/2015 4:37 PM CDT Bone length examination with AP images of the pelvis, bilateral femurs, and bilateral tibia and fibula History: Bilateral knee pain and osteoarthritis Findings: There is a 1.2 cm in length length discrepancy with the left leg longer than the right. This is predominantly within the femurs as there is a 4 mm discrepancy at the level of the knees. There is moderate medial joint space narrowing with associated osteophyte formation. Procedure Note Vannessa Hector MD - 01/20/2015 Bone length examination with AP images of the pelvis, bilateral femurs, and bilateral tibia and fibula History: Bilateral knee pain and osteoarthritis Findings: There is a 1.2 cm in length length discrepancy with the left leg longer than the right. This is predominantly within the femurs as there is a 4 mm discrepancy at the level of the knees. There is moderate medial joint space narrowing with associated osteophyte formation. Brendan Abdalla MD DIAGNOSTIC IMAGING [facility] Care Teams Car Mover Relationship Specialty Start Date End Date Madyson Raymundo MD [address] [place] [address] PCP - General Family Medicine 04/16/22 [place] [address] [address] [place] [address] Orthopedic Surgery 01/30/21 [place] [address] [place] [address] Physical Medicine and Rehabilitation 02/06/21
--- OUTSIDE RECORDS SUMMARY | 2024-12-15 16:53 | XMS_ITS | Encounter Summary ---
Author Organization [facility] Address [facility] [place] [address] Care Team Providers Care Structural Test Engineer Name Role Phone Sangeetha Aguilar Primary Care Provider [phone] Encounter Details Date Type Department Care Team (Late st Contact Info) Description 08/15/[address] [facility] [address] [place], [place] [id number] Josh Carrasco MD [address] [address] Social History Tobacco Use Types Packs/Day Years Used Date Smoking Tobacco: Never Smokeless Tobacco: Never Alcohol Use Standard Drinks/Week Comments Never 0 (1 standard drink = 0.6 oz pur e alcohol) AUDIT-C Answer Date Recorded Q1: How often do you have a drink containing alc ohol? Never 07/04/2020 Average Number of Drinks Not on file 020 Frequency of Binge Drinking Not on file 06/21 PHQ-2 Answer Date Recorded PHQ-2 Score - If the patient scores above 3, please move on to questions 3-9 0 07/28/2020 Comments No Sex and Gender Information Value Date Recorded Sex Assigned at Not on file Legal Sex Female 4:18 PM CDT Gender Identity Not on file Sexual Orientation Not on file COVID-19 Exposure Response Date Recorded In the last month, have you been in contact with someone who was confirmed or suspected to have Coronavirus / COVID-19? No / Unsure 08/05/2020 2:33 PM CDT documented as of this encounter Plan of Treatment Not on file documented as of this encounter Results * PRE-SURGICAL/PRE-PROCEDURE CORONAVIRUS (COVID 19) (08/21/2020 7:44 AM MASH PREPARATORY OPERATOR) CORONAVIRUS SARS COV 2 PCR (RESP) NOT DETECTED NOT DETECTED 08/22/2020 11:50 AM MASH PREPARATORY OPERATOR [employer] [facility] Comment: A Not Detected (negative) test result for this test means that SARS- CoV-2 RNA was not present in the specimen above the limit of detection. A negative result does not rule out the possibility of COVID-19 and should not be used as the sole basis for treatment or patient management decisions. If COVID-19 is still suspected, based on exposure history together with other clinical findings, re-testing should be considered in consultation with public health authorities. Laboratory test results should always be considered in the context of clinical observations and epidemiological data in making a final diagnosis and patient management decisions. Please review the Fact Sheets and FDA authorized labeling available for health care providers and patients using the following websites: https://www.f4samurai.Qloo/home/Covid-19/HCP/QuestIVD/fact- sheet.html https://www.f4samurai.Qloo/home/Covid-19/Patients/ QuestIVD/fact-sheet.html This test has been authorized by the FDA under an Emergency Use Authorization (EUA) for use by authorized laboratories. Due to the current public health emergency, [employer] is receiving a high volume of samples from a wide variety of swabs and media for COVID-19 testing. In order to serve patients during this public health crisis, samples from appropriate clinical sources are being tested. Negative test results derived from specimens received in non-commercially manufactured viral collection and transport media, or in media and sample collection kits not yet authorized by FDA for COVID-19 testing should be cautiously evaluated and the patient potentially subjected to extra precautions such as additional clinical monitoring, including collection of an additional specimen. Methodology: Nucleic Acid Amplification Test (NAAT) includes RT-PCR or TMA Additional information about COVID-19 can be found at the [employer] website: www.Siege Paintball.com/Covid19. Test performed at [facility] [place] [address] [place] [address] Director: ERIC GONSALVES DO,MPH FIRST TEST UNKNOWN 08/21/2020 7:45 AM MASH PREPARATORY OPERATOR [facility] EMPLOYED IN HEALTHCARE NO 08/21/2020 7:45 AM MASH PREPARATORY OPERATOR [facility] SYMPTOMATIC DEFINED BY CDC NO 08/21/2020 7:45 AM MASH PREPARATORY OPERATOR [facility] DATE OF SYMPTOM ONSET UNKNOWN 08/21/2020 8:02 AM MASH PREPARATORY OPERATOR [facility] HOSPITALIZATION STATUS NO 08/21/2020 7:45 AM MASH PREPARATORY OPERATOR [facility] PATIENT IN ICU NO 08/21/2020 7:45 AM MASH PREPARATORY OPERATOR [facility] RESIDENT OF [facility] NO 08/21/2020 7:45 AM MASH PREPARATORY OPERATOR [facility] UNKNOWN 08/21/2020 8:02 AM MASH PREPARATORY OPERATOR [facility] PATIENT'S RACE WHITE OR 08/21/2020 7:45 AM [facility] ETHNICITY NONHISPANIC 08/21/2020 7:45 AM MASH PREPARATORY OPERATOR [facility] SOURCE (QST) NASOPHARYNGEAL SWAB 08/21/2020 7:45 AM [facility] NASOPHARYNGEAL SWAB / Unknown 08/21/2020 7:44 AM MASH PREPARATORY OPERATOR Josh Carrasco MD MICROBIOLOGY - GENERAL ORDERABLE S Final Result Performing Organization Address City/State/[facility] Co de Phone Number [facility] [address] [place] [address], [place] [phone] [facility] [id number] [place] [address], documented in this encounter Visit Diagnoses Diagnosis Preop testing- Primary Preoperative examination, unspecified documented in this encounter Additional Health Concerns Infection Onset Date Last Indicated Resolved Time COVID-19 Rule Out 08/21/2020 08/21/2020 08/22/2020 11:51 AM MASH PREPARATORY OPERATOR documented as of this encounter Care Teams Structural Test Engineer Relationship Specialty [place] [address] [place] [address] PCP - General PHYSICIAN SALES SUPPORT MANAGER 07/04/20 documented as of this encounter
--- OUTSIDE RECORDS SUMMARY | 2024-12-15 16:53 | XMS_ITS | Clinical Summary ---
Author Organization [facility] Address [address] [place] [address] Care Team Providers Care Air Bag Builder Name Role Phone Sangeetha Aguilar Primary Care Provider [phone] Allergies Active Allergy Reactions Criticality Noted Date Comments Latex Itching 12/06/2011 Medications atorvastatin 80 MG tablet Take 80 mg by mouth daily. Active LORazepam 0.5 MG tablet Take 0.5 mg by mouth daily. 0 Active Melatonin 10 MG Cap Take 10 mg by mouth as needed. Active olmesartan 20 MG tablet Take 20 mg by mouth daily. 0 Active polyethylene glycol 17 GM/SCOOP powder Take 17 g by mouth daily as needed. Active SITagliptin (JANUVIA) 50 MG tablet Take 50 mg by mouth daily. 0 Active traMADol 50 MG tablet Take 50 mg by mouth daily as needed. FOR PAIN 0 Active multi vitamin/mineral s tablet Take 1 tablet by mouth daily. Active carbidopa-levod opa 25-100 MG tablet Take 1 tablet by mouth. 0 Active carbidopa-levod opa CR 50-200 MG tablet Take 1 tablet by mouth. 0 Active entacapone 200 MG tablet Take 200 mg by mouth 3 (three) times daily. 0 Active metoprolol tartrate 50 MG tablet Take 12.5 mg by mouth. Active nystatin powder Apply topically 2 (two) times daily. 0 Active selenium sulfide 2.5 % lotion Small amount to entire body lather let it sit for 10 minutes and rinse repeat daily for 1 week. 0 Active Magnesium 400 MG Cap Active Cholecalciferol (VITAMIN D) 50 MCG (1999 UT) Tab Active Active Problems Problem Noted Date Diagnosed Date Abdominal pain 08/15/2020 Overview (08/15/2020): Added automatically from request for surgery [id number] Parkinson disease ([facility]) 07/04/2020 Other hyperlipidemia 07/04/2020 Essential hypertension 07/04/2020 Anxiety 07/04/2020 Family History Medical History Relation Comments Hypertension Father Parkinson's Disease Father Diabetes Mother Stroke Mother Relation Status Comments Father Mother Social History Tobacco Use Types Packs/Day Years [...] Sign Reading Time Taken Comments Blood Pressure 118/72 12/02/2020 3:59 PM MICA SPLITTER Pulse 70 12/02/2020 3:59 PM MICA SPLITTER Temperature 36.3 C (97.4 F) 12/02/2020 3:59 PM MICA SPLITTER Respiratory Rate 18 12/02/2020 3:59 PM MICA SPLITTER Oxygen Saturation 97% 12/02/2020 3:59 PM MICA SPLITTER Inhaled Oxygen Concentration - - Weight 81.8 kg (180 lb 6.4 oz) 12/02/2020 3:59 P M MICA SPLITTER Height 162.6 cm (5' 4 ) 12/02/2020 3:59 PM MICA SPLITTER Body Mass Index 30.97 12/02/2020 3:59 PM MICA SPLITTER Plan of Treatment Health Maintenance Due Date Last Done Comments Hepatitis C 1971 Mammogram Screening 1993 Zoster Vaccines (1 of 2) 2003 DTaP, Tdap and Td Vaccines ( 1 - Tdap) 02/15/2005 02/14/2005, 03/02/1994 Annual Medicare Wellness Visit 2018 Dexa Scan (General) 2018 Pneumococcal Vaccine: 65+ Years (2 of 2 - PCV) 2018 03/27/2015 COVID-19 Vaccine (3 - 2023-2 5 season) 2024 01/24/2021, 12/07/2020 Influenza Adult (#1) 2024 RSV Immunization or 60+ Years (1 - 1-dose 75+ series) 02/14/2028 Colorectal Cancer Screening Colonoscopy (10 Years) 08/24/2030 08/24/2020 Meningococcal B Vaccine Aged Out No l onger eligible based on patient's age to complete this topic Meningococcal Vaccine Aged Out No tosha merhan eligible based on patient's age to complete this topic RSV Immunizations Under 20 Months Aged Out No longer eligible b ased on patient's age to complete this topic Medical Devices Implanted Type Area Food Safety Auditor Device Identifier Shelf Expiration Date Model / Serial / Lot Knee Insurance MEDICARE [facility] Care Teams Air Bag Builder Relationship Specialty Start [place] [address] [place] [address] PCP - General PHYSICIAN CHILDREN LIBRARIAN 07/04/20
--- OUTSIDE RECORDS SUMMARY | 2024-12-15 16:53 | XMS_ITS | Referral Summary ---
Author Organization [facility] Address [address] [place] [address] Care Team Providers Care Retail Banker Name Role Phone Irene STORM MD, Bashir Unavailable [phone] Walt Leone MD Unavailable [phone] Madyson Raymundo MD Primary Care Provider Source Comments [facility],non-owned Affiliates and Associated Physician Practices is amultiple site organization consisting of ambulatory clinics and hospital sitesin [place], [place], [place] and [place]. This disclosure is being madepursuant to the Care Everywhere program and may not contain all information available regarding this patient. Last updated 18.[facility]u Encounters Date Type Department Care Team Description 11/22/2024 Refill [facility]sc[facility] [address] [address] Bobby Griffin MD Refill Request from Last 3 Months Allergies Active Allergy Reactions Criticality Noted Date Comments Lisinopril Cough 11/06/2017 Medications * Be aware that medications may not be up to date on this document. Alwaysverify current medications with the patient. Medication Sig Dispensed Refills Start Date End Date Status metoprolol tartrate IR (LOPRESSOR) 50 MG tablet Take 12.5 mg by mouth at bedtime Active atorvastatin (LIPITOR) 80 MG tablet Take 1 (one) tablet by mouth at bedtime Active JANUVIA 50 MG tablet 11/03/2019 Active olmesartan (BENICAR) 20 MG tablet 11/16/2019 Active Multiple Vitamin (MULTI VITAMIN PO) Take by mouth once daily Active polyethylene glycol 3350 (MIRALAX) 17 GM/SCOOP powder Take 17 (seventeen) g by mouth once daily as needed for Constipation Active melatonin 10 MG capsule Take 1 (one) capsule by mouth nightly as needed for Insomnia Active Acetaminophen (TYLENOL PO) Active Cholecalciferol (SM VITAMIN D3) 100 MCG (4000 UT) Take by mouth once daily Active Blood Glucose Monitoring Suppl (Pre Play Sports ULTRA 2) w/Device KIT USE TO TEST DAILY 04/21/2022 Activ e gabapentin (Neurontin) 300 MG capsule TAKE 1 CAPSULE BY MOUTH THREE TIMES A DAY 270 capsule 3 11/29/2023 Active carbidopa-levod opa CR (Sinemet CR) 50-200 MG tablet TAKE 1 TABLET BY MOUTH EVERYDAY AT BEDTIME 90 tablet 3 03/30/2024 Active carbidopa-levod opa (Sinemet) 25-100 MG tablet TAKE 1 (ONE) TABLET BY MOUTH 5 TIMES DAILY WHILE AWAKE 450 tablet 3 03/30/2024 Active rivastigmine (Exelon) 1.5 MG capsule TAKE 1 CAPSULE BY MOUTH TWICE A DAY WITH MORNING AND EVENING MEAL 180 capsule 1 11/23/2024 Active rivastigmine (Exelon) 1.5 MG capsule TAKE 1 CAPSULE BY MOUTH TWICE A DAY WITH MORNING AND EVENING MEAL 180 capsule 1 03/30/2024 11/23/19 25 Discontinued Active Problems Problem Noted Date Diagnosed Date Neoplasm of uncertain behavior of skin 0 Sebaceous hyperplasia of face 12/06/2019 Lentigines 12/06/2019 History of basal cell carcinoma 12/06/2019 Actinic keratosis 12/06/2019 Rash and other nonspecific skin eruption 020 Melanocytic nevi of trunk 12/06/2019 Seborrheic keratosis 12/06/2019 Plantar fascial fibromatosis 12/04/2019 Closed fracture of right patella 11/05/2017 My-prosthetic patellar fracture, initial encou nter 11/04/2017 Immunizations Name Administration Dates Next Due PNEUMOCOCCAL PPSV23 03/27/2015 Social History Tobacco Use Types Packs/Day Years [...] 36.4 C (97.6 F) 11/07/2017 11:36 AM PEST CONTROL OPERATOR Respiratory Rate 16 01/01/2023 11:27 AM CDT Oxygen Saturation 98% 01/01/2023 11:27 AM CDT Inhaled Oxygen Concentration - - Weight 79.4 kg (175 lb) 02/06/2023 12:59 PM CDT Height 162.6 cm (5' 4 ) 02/06/2023 12:59 PM CDT Body Mass Index 30.04 02/06/2023 12:59 PM CDT Functional Status Functional Status Response Date of Assess ment Is person deaf or have serious hearing difficult y? Yes 11/04/2017 Is person blind or have serious difficulty seein g? No 11/04/2017 Does person have serious dif ficulty walking/climbing stairs? Yes-parkinsons 11/04/2017 Does person have difficulty dressing/bathing? No 11/04/2017 Does person have difficulty doing errands alone? Yes 11/04/2017 Cognitive Status Response Date of Assessm ent Does person have difficulty concentrating/remembering/making decisions? No 11/04/2017 Plan of Treatment Not on file Medical Devices Implanted Type Area Soil Fertility Specialist Device Identifier Shelf Expiration Date Model / Serial / Lot Alberto Bone Palacos R Implanted:Qty : 2 on 03/24/2015 by Brendan Abdalla MD at [facility] Left: Knee [employer] 09/20/2019 [id number] / / [id number] 29mm Oval Patellar Component Implanted:Qty : 1 on 03/24/2015 by Brendan Abdalla MD at [facility] Left: Knee [employer] 10/21/2024 [id number] / / [id number] Size 4, Left Femoral Component Implanted:Qty : 1 on 03/24/2015 by Brendan Abdalla MD at [facility] Left: Knee [employer] 12/19/2024 [id number] / / [id number] Alberto Bone Palacos R Implanted:Qty : 1 on 03/24/2015 by Brendan Abdalla MD at [facility] Left: Knee [employer] 09/20/2019 [id number] / / [id number] Left, Size 3-4 Articular Insert Implanted:Qty : 1 on 03/24/2015 by Brendan Abdalla MD at [facility] Left: Knee [employer] 02/19/2024 [id number] / / [id number] Alberto Bone Palacos R Implanted:Qty : 2 on 03/24/2015 by Brendan Abdalla MD at [facility] Right: Knee [employer] 09/20/2019 [id number] / / [id number] Size 4, Right Femoral Component Implanted:Qty : 1 on 03/24/2015 by Brendan Abdalla MD at [facility] Right: Knee [employer] 02/19/2024 [id number] / / [id number] 29mm Oval Patellar Component Implanted:Qty : 1 on 03/24/2015 by Brendan Abdalla MD at [facility] Right: Knee [employer] 12/19/2024 [id number] / / [id number] Size 3, Right Tibial Baseplate Implanted:Qty : 1 on 03/24/2015 by Brendan Abdalla MD at [facility] Right: Knee [employer] 11/21/2024 [id number] / / [id number] Right, Size 3-4 12mm Articular Insert Implanted:Qty : 1 on 03/24/2015 by Brendan Abdalla MD at [facility] Right: Knee [employer] 02/19/2024 [id number] / / [id number] Size 3, Left Tibial Baseplate Implanted:Qty : 1 on 03/24/2015 by Brendan Abdalla MD at [facility] Left: Knee [employer] 12/19/2024 [id number] / / [id number] Explanted Type Area Soil Fertility Specialist Device Identifier Shelf Expiration Date Model / Serial / Lot Cutting Guide, Right Explanted:Qty: 1 on 03/24/2015 at [facility] Right: Knee [employer] 04/20/2015 [id number] / / [id number] Left Cutting Guide Explanted:Qty: 1 on 03/24/2015 at [facility] Left: Knee [employer] 04/20/2015 [id number] / / [id number] Procedures Procedure Name Priority Date/Time Associated Diagnosis Comments BASIC METABOLIC PANEL (CALCIUM TOTAL) AM Draw 11/07/2017 6:40 AM PEST CONTROL OPERATOR from Last 3 Months or Most Recently Relevant to Health Maintenance Results * (ABNORMAL) BASIC METABOLIC PANEL (CALCIUM TOTAL) (11/07/2017 6:40 AM PEST CONTROL OPERATOR) Glucose 141(H) 74 - 106 mg/dL 11/07/2017 7:28 AM [facility] Sodium 141 136 - 145 mmol/L 11/07/2017 7:28 AM [facility] Potassium 3.9 3.5 - 5.1 mmol/L 11/07/2017 7:28 AM [facility] Chloride 105 98 - 107 mmol/L 11/07/2017 7:28 AM [facility] CO2 26 22 - 31 mmol/L 11/07/2017 7:28 AM [facility] Calcium 8.0(L) 8.5 - 10.1 mg/dL 11/07/2017 7:28 AM [facility] Anion Gap 10 8 - 16 mmol/L 11/07/2017 7:28 AM [facility] BUN 16 7 - 21 mg/dL 11/07/2017 7:28 AM [facility] Creatinine 1.05 0.50 - 1.30 mg/dL 11/07/2017 7:28 AM [facility] eGFR by MDRD 53(L) >60 mL/min/1.7 3m2 11/07/2017 7:28 AM PEST CONTROL OPERATOR [facility] [place] [facility] eGFR by MDRD >60 >60 mL/min/1.7 3m2 11/07/2017 7:28 AM PEST CONTROL OPERATOR [facility] [place] [facility] Blood BLOOD SPECIMEN / Unknown Lab Venipuncture / Unknown 11/07/2017 6:40 AM PEST CONTROL OPERATOR 11/07/2017 6:57 AM PEST CONTROL OPERATOR Brendan Abdalla MD LAB - CHEMISTRY PRISCILA DYER [facility] [place] [facility] [address] [place] [address] from Last 3 Months or Most Recently Relevant to Health Maintenance Advance Directives * Full Code (Latest Code Status on File) Date Activated Date Inactivated Comments 11/05/2017 9:05 PM 11/07/2017 7:14 PM * Full Code Date Activated Date Inactivated Comments 11/04/2017 9:13 PM 11/05/2017 9:05 PM * Full Code Date Activated Date Inactivated Comments 03/24/2015 8:07 PM 03/27/2015 3:55 PM Care Teams Retail Banker Relationship Specialty Start Date End Date Madyson Raymundo MD [address] [place] [address] PCP - General Family Medicine 04/16/22 [place] [address] [place] [address] Orthopedic Surgery 01/30/21 [place] [address] [place], [place] [id number] Physical Medicine and Rehabilitation 02/06/21
--- OUTSIDE RECORDS SUMMARY | 2024-12-15 16:53 | XMS_ITS | Encounter Summary ---
Author Organization [facility] Address [facility] [place] [address] Care Team Providers Care Head End Desizing Machine Operator Name Role Phone Sangeetha Aguilar Primary Care Provider [phone] Encounter Details Date Type Department Care Team (Late st Contact Info) Description 07/22/2020 [employer] Message Enc [facility] Family & Internal Medicine [facility] [address] [place] [address] [place] [address] [place] [address] Follow Up/Update Social History Tobacco Use Types Packs/Day Years [...] 06/21 PHQ-2 Answer Date Recorded PHQ-2 Score 2 07/04/2020 Comments Unknown Sex and Gender Information Value Date Recorded Sex Assigned at Not on file Legal Sex Female 4:18 PM CDT Gender Identity Not on file Sexual Orientation Not on file COVID-19 Exposure Response Date Recorded In the last month, have you been in contact with someone who was confirmed or suspected to have Coronavirus / COVID-19? No / Unsure 07/25/2020 12:10 PM CDT documented as of this encounter Plan of Treatment Not on file documented as of this encounter Visit Diagnoses Not on filedocumented in this encounter Additional Health Concerns Infection Onset Date Last Indicated Resolved Time COVID-19 Rule Out 08/21/2020 08/21/2020 08/22/2020 11:51 AM PLACING JUDGE documented as of this encounter Care Teams Head End Desizing Machine Operator Relationship Specialty Start [place] [address] [place] [address] PCP - General PHYSICIAN RN CLINICAL RESEARCH 07/04/20 documented as of this encounter
--- OUTSIDE RECORDS SUMMARY | 2024-12-15 16:53 | XMS_ITS | Clinical Summary ---
Author Organization [facility] Address [address] [place] [address] Care Team Providers Care Supervisor Ordnance Truck Installation Name Role Phone Irene STORM MD, Bashir Unavailable [phone] Walt Leone MD Unavailable [phone] Madsyon Raymundo MD Primary Care Provider Source Comments [facility],non-owned Affiliates and Associated Physician Practices is amultiple site organization consisting of ambulatory clinics and hospital sitesin [place], [place], [place] and [place]. This disclosure is being madepursuant to the Care Everywhere program and may not contain all information available regarding this patient. Last updated 18.[facility] Allergies Active Allergy Reactions Criticality Noted Date [...] once daily Active Blood Glucose Monitoring Suppl (ONE TOUCH ULTRA 2) w/Device KIT USE TO TEST [...] My-prosthetic patellar fracture, initial encou nter 11/04/2017 Encounters Date Type Department Care Team Description 11/22/2024 Refill [facility] Neurosciences [address] [facility] [address] [place] [address] Bobby Griffin MD Refill Request from Last 3 Months Immunizations Name Administration Dates Next Due PNEUMOCOCCAL PPSV23 03/27/2015 Family History Medical History Relation Name Comments Diabetes Mother Diabetes Sister Relation Name Status Comments Mother Sister Social History Tobacco Use Types Packs/Day Years [...] 36.4 C (97.6 F) 11/07/2017 11:36 AM HIGH SCHOOL DIRECTOR Respiratory Rate 16 01/01/2023 11:27 AM CDT Oxygen Saturation 98% 01/01/2023 11:27 AM CDT Inhaled Oxygen Concentration - - Weight 79.4 kg (175 lb) 02/06/2023 12:59 PM CDT Height 162.6 cm (5' 4 ) 02/06/2023 12:59 PM CDT Body Mass Index 30.04 02/06/2023 12:59 PM CDT Plan of Treatment Health Maintenance Due Date Last Done Comments BONE DENSITY TESTING 1955 COLOGUARD (AGES 45-75) - COLON CA SCREENING 1955 COLON MONITORING 1953 COLONOSCOPY - COLON CA SCREENING 1953 CT COLONOGRAPHY - COLON CA SCREENING 1955 Colorectal Cancer Screening 1953 FIT - COLON CA SCREENING 1953 FLEX SIG - COLON CA SCREENING 1955 MAMMOGRAM 1955 MEDICARE AWV 12 MONTHS 1953 HEPATITIS C SCREENING 02/09/1971 DTAP/TDAP/TD VACCINES (1 - Tdap) 02/14/1972 ZOSTER VACCINE (1 of 2) 2003 PNEUMOCOCCAL VACCINE 50+ (2 of 2 - PCV) 03/27/2016 03/27/2015 SCREENING FOR DIABETES 11/07/2020 8, 11/07/2017, 11/07/2017, Additional history exists COVID-19 VACCINE (1 - 2023- season) 2024 INFLUENZA VACCINE (#1) 2024 DEPRESSION SCREENING 10/21/2024 Respiratory Syncytial Virus (RSV) Vaccine Pt: or over 60 yrs (1 - 1-dose 75+ series) 02/14/2028 HEPATITIS B VACCINE Aged Out No longe r eligible based on patient's age to complete this topic HIB VACCINE Aged Out No longer eligi ble based on patient's age to complete this topic HPV VACCINE Aged Out No longer eligi ble based on patient's age to complete this topic MENINGOCOCCAL (Group B) VACCINE Aged Out No longer eligible based on patient's age to complete this topic MENINGOCOCCAL VACCINE Aged Out No tosha mehran eligible based on patient's age to complete this topic Medical Devices Implanted Type Area Wrecking Supervisor Device Identifier Shelf Expiration Date Model / Serial / Lot Alberto Bone Palacos R Implanted:Qty : 2 on 03/24/2015 by Brendan Abdalla MD at [facility] Left: Knee [employer] 09/20/2019 [id number] / / [id number] 29mm Oval Patellar Component Implanted:Qty : 1 on 03/24/2015 by Brendan Abdalla MD at [facility] Left: Knee [employer] 10/21/2024 [id number] / / [id number] Size 4, Left Femoral Component Implanted:Qty : 1 on 03/24/2015 by Brendan Abdalla MD at [facility] Left: Knee [employer] 12/19/2024 [id number] / / [id number] Alberto Bone Palacos R Implanted:Qty : 1 on 03/24/2015 by Brendan Abdalla MD at [facility] Left: Knee [employer] 09/20/2019 [id number] / / [id number] Left, Size 3-4 Articular Insert Implanted:Qty : 1 on 03/24/2015 by Brendan Abdalla MD at [facility] Left: Knee [employer] 02/19/2024 [id number] / / [id number] Alberto Bone Palacos R Implanted:Qty : 2 on 03/24/2015 by Brendan Abdalla MD at [facility] Right: Knee [employer] 09/20/2019 [id number] / / [id number] Size 4, Right Femoral Component Implanted:Qty : 1 on 03/24/2015 by Brendan Abdalla MD at [facility] Right: Knee [employer] 02/19/2024 [id number] / / [id number] 29mm Oval Patellar Component Implanted:Qty : 1 on 03/24/2015 by Brendan Abdalla MD at [facility] Right: Knee [employer] 12/19/2024 [id number] / / [id number] Size 3, Right Tibial Baseplate Implanted:Qty : 1 on 03/24/2015 by Brendan Abdalla MD at [facility] Right: Knee [employer] 11/21/2024 [id number] / / [id number] Right, Size 3-4 12mm Articular Insert Implanted:Qty : 1 on 03/24/2015 by Brendan Abdalla MD at [facility] Right: Knee [employer] 02/19/2024 [id number] / / [id number] Size 3, Left Tibial Baseplate Implanted:Qty : 1 on 03/24/2015 by Brendan Abdalla MD at [facility] Left: Knee [employer] 12/19/2024 [id number] / / [id number] Explanted Type Area Wrecking Supervisor Device Identifier Shelf Expiration Date Model / Serial / Lot Cutting Guide, Right Explanted:Qty: 1 on 03/24/2015 at [facility] Right: Knee [employer] 04/20/2015 [id number] / / [id number] Left Cutting Guide Explanted:Qty: 1 on 03/24/2015 at [facility] Left: Knee [employer] 04/20/2015 [id number] / / [id number] Procedures Procedure Name Priority Date/Time Associated Diagnosis Comments BASIC METABOLIC PANEL (CALCIUM TOTAL) AM Draw 11/07/2017 6:40 AM HIGH SCHOOL DIRECTOR from Last 3 Months or Most Recently Relevant to Health Maintenance Results * (ABNORMAL) BASIC METABOLIC PANEL (CALCIUM TOTAL) (11/07/2017 6:40 AM [facility] Glucose 141(H) 74 - 106 mg/dL 11/07/2017 7:[address] [facility] Sodium 141 136 - 145 mmol/L 11/07/2017 7:[address] [facility] Potassium 3.9 3.5 - 5.1 mmol/L 11/07/2017 7:[address] [facility] Chloride 105 98 - 107 mmol/L 11/07/2017 7:[address] [facility] CO2 26 22 - 31 mmol/L 11/07/2017 7:[address] [facility] Calcium 8.0(L) 8.5 - 10.1 mg/dL 11/07/2017 7:[address] [facility] Anion Gap 10 8 - 16 mmol/L 11/07/2017 7:[address] [facility] BUN 16 7 - 21 mg/dL 11/07/2017 7:[address] [facility] Creatinine 1.05 0.50 - 1.30 mg/dL 11/07/2017 7:[address] [facility] eGFR by MDRD 53(L) >60 mL/min/1.7 3m2 11/07/2017 7:[address] [facility] eGFR by MDRD >60 >60 mL/min/1.7 3m2 11/07/2017 7:[address] [facility] Blood BLOOD SPECIMEN / Unknown Lab Venipuncture / Unknown 11/07/2017 6:40 AM HIGH SCHOOL DIRECTOR 11/07/2017 6:57 AM [facility] B[facility] Abd[facility] MD LAB - CHEMISTRY [facility] Organization Address City/State/ZIP Co de Phone Number [facility] [address] [place] [address] from Last 3 Months or Most Recently Relevant to Health Maintenance Advance Directives * Full Code (Latest Code Status on File) Date Activated Date Inactivated Comments 11/05/2017 9:05 PM 11/07/2017 7:14 PM * Full Code Date Activated Date Inactivated Comments 11/04/2017 9:13 PM 11/05/2017 9:05 PM * Full Code Date Activated Date Inactivated Comments 03/24/2015 8:07 PM 03/27/2015 3:55 PM Care Teams Supervisor Ordnance Truck Installation Relationship Specialty Start Date End Date Madyson Raymundo MD [address] [place] [address] PCP - General Family Medicine 04/16/22 [place] [address] [address] [place] [address] Orthopedic Surgery 01/30/21 [place] [address] [place] [address] Physical Medicine and Rehabilitation 02/06/21
--- OUTSIDE RECORDS SUMMARY | 2024-12-15 16:53 | XMS_ITS | Encounter Summary ---
Author Organization [facility] Address [facility] [place] [address] Care Team Providers Care Heat Welder Plastics Name Role Phone Sangeetha Aguilar Primary Care Provider [phone] Encounter Details Date Type Department Care Team (Late st Contact Info) Description 07/22/2020 [employer] Message Enc [facility] Medical Group Family & Internal Medicine [facility] [address] [place] [address] [place] [address] [place] [address] RE: Medication Questions Social History Tobacco Use Types Packs/Day Years [...] Rule Out 08/21/2020 08/21/2020 08/22/2020 11:51 AM ACCOUNTS PAYABLE ASSOCIATE documented as of this encounter Care Teams Heat Welder Plastics Relationship Specialty [place] [address] [place] [address] PCP - General PHYSICIAN PLANT ASSOCIATE 07/04/20 documented as of this encounter
[2024-12-15 19:18] LABS: Alanine Aminotransferase 17 U/L (6-35); Albumin Level 4.4 g/dL (3.5-5.1); Alkaline Phosphatase 79 U/L (38-126); Anion Gap 9 mmol/L (4-12); Aspartate Amino Transferase 56 U/L (14-36); Bilirubin,Total 0.6 mg/dL (0.2-1.3); Blood Urea Nitrogen 21 mg/dL (7-17); Calcium 9.7 mg/dL (8.4-10.2); Carbon Dioxide 26 mmol/L (22-30); Chloride 105 mmol/L (98-107); Estimated Glomerular Filt Rate > 60; Glucose 98 mg/dL (65-110); Potassium 4.3 mmol/L (3.4-5.0); Sodium 140 mmol/L (137-145)
[2024-12-15 22:15] LABS: Hemoglobin A1C 6.4 % (<5.7)
== END 2024-12-15 14:30 | disposition home or self-care (01) ==
LOC: ANHGOSHLAB 14:31
PROVIDERS: PCP Family Medicine; Visit Provider Family Medicine
DX: E11.9 Type 2 diabetes mellitus without complications (principal); I10 Essential (primary) hypertension
CPT/HCPCS: 36415; 80053; 83036

== ENCOUNTER 2025-06-29 09:10 | Outpatient (CLI) | payer MEDICARE, OTHER, SELFPAY ==
--- OUTSIDE RECORDS SUMMARY | 2025-06-29 09:55 | XMS_ITS | Encounter Summary ---
Author Organization [facility] Address [facility] [place] [address] Care Team Providers Care Recapper Name Role Phone Sangeetha Aguilar Primary Care Provider [phone] Encounter Details Date Type Department Care Team (Late st Contact Info) Description 07/22/2020 [employer] Message Enc [facility] Medical Group Family & Internal Medicine [facility] [address] [place] [address] [place] [address] [place] [address] Follow Up/Update Social History Tobacco [...] Rule Out 08/21/2020 08/21/2020 08/22/2020 11:51 AM SALES LEAD documented as of this encounter Care Teams Recapper Relationship Specialty Start [place] [address] [place] [address] PCP - General PHYSICIAN MANAGER BODY 07/04/20 documented as of this encounter
--- OUTSIDE RECORDS SUMMARY | 2025-06-29 09:55 | XMS_ITS | Encounter Summary ---
Author Organization [facility] Address [facility] [place] [address] Care Team Providers Care Steel Handler Name Role Phone Sangeetha Aguilar Primary Care Provider [phone] Encounter Details Date Type Department Care Team (Late st Contact Info) Description 07/22/2020 [employer] Message Enc [facility] Medical Group Family & Internal Medicine [facility] [address] [place] [address] [place] [address] [place] [address] RE: Medication Questions Social History [...] Rule Out 08/21/2020 08/21/2020 08/22/2020 11:51 AM QUALITY CONTROL DIRECTOR documented as of this encounter Care Teams Steel Handler Relationship Specialty Start [place] [address] [place] [address] PCP - General PHYSICIAN MANAGER DECISION SUPPORT 07/04/20 documented as of this encounter
--- OUTSIDE RECORDS SUMMARY | 2025-06-29 09:55 | XMS_ITS | Encounter Summary ---
Author Organization [facility] Address [facility] [place] [address] Care Team Providers Care Supervisor Alteration Workroom Name Role Phone Sangeetha Aguilar Primary Care Provider [phone] Encounter Details Date Type Department Care Team (Late st Contact Info) Description 08/15/2020 Prep for Procedure [facility] [address] [place], [place] [id number] Josh Carrasco MD [address] [address] Social History Tobacco Use Types Packs/Day Years [...] PRE-SURGICAL/PRE-PROCEDURE CORONAVIRUS (COVID 19) (08/21/2020 7:44 AM ENVIRONMENTAL LAWYER) CORONAVIRUS SARS COV 2 PCR (RESP) NOT DETECTED NOT DETECTED 08/22/2020 11:50 AM ENVIRONMENTAL LAWYER [employer] [facility] Comment: A Not Detected (negative) test result [...] providers and patients using the following websites: https://www.Collect.NEBOTRADE/home/Covid-19/HCP/Quest[facility]/fact- sheet.html https://www.Collect.NEBOTRADE/home/Covid-19/Patients/ QuestIVD/fact-sheet.html This test has been authorized by the FDA under an Emergency Use Authorization (EUA) for use by authorized laboratories. Due to the current public health emergency, [facility] is receiving a high volume of samples [...] about COVID-19 can be found at the [facility] website: www.OpenPortal.com/Covid19. Test performed at [facility] [address] [place] [address] Director: ERIC GONSALVES DO,MPH FIRST TEST UNKNOWN 08/21/2020 7:45 AM ENVIRONMENTAL LAWYER [facility] EMPLOYED IN HEALTHCARE NO 08/21/2020 7:45 AM ENVIRONMENTAL LAWYER [facility] SYMPTOMATIC DEFINED BY CDC NO 08/21/2020 7:45 AM ENVIRONMENTAL LAWYER [facility] DATE OF SYMPTOM ONSET UNKNOWN 08/21/2020 8:02 AM ENVIRONMENTAL LAWYER [facility] HOSPITALIZATION STATUS NO 08/21/2020 7:45 AM ENVIRONMENTAL LAWYER [facility] PATIENT IN ICU NO 08/21/2020 7:45 AM ENVIRONMENTAL LAWYER [facility] RESIDENT OF [facility] NO 08/21/2020 7:45 AM ENVIRONMENTAL LAWYER [facility] UNKNOWN 08/21/2020 8:02 AM ENVIRONMENTAL LAWYER [facility] PATIENT'S RACE WHITE OR 08/21/2020 7:45 AM [facility] ETHNICITY NONHISPANIC 08/21/2020 7:45 AM ENVIRONMENTAL LAWYER [facility] SOURCE (QST) NASOPHARYNGEAL SWAB 08/21/2020 7:45 AM [facility] NASOPHARYNGEAL SWAB / Unknown 08/21/2020 7:44 AM ENVIRONMENTAL LAWYER Josh Carrasco MD MICROBIOLOGY - GENERAL ORDERABLE S Final Result Performing Organization Address City/State/[facility] Co de Phone Number [facility] [address] [place] [address], [place] [phone] [facility] [id number] [place] [address], documented in this encounter Visit Diagnoses Diagnosis Preop testing- Primary Preoperative examination, unspecified documented in this encounter Additional Health Concerns Infection Onset Date Last Indicated Resolved Time COVID-19 Rule Out 08/21/2020 08/21/2020 08/22/2020 11:51 AM ENVIRONMENTAL LAWYER documented as of this encounter Care Teams Supervisor Alteration Workroom Relationship Specialty Start [place] [address] [place] [address] PCP - General PHYSICIAN MANAGER PORT 07/04/20 documented as of this encounter
--- OUTSIDE RECORDS SUMMARY | 2025-06-29 09:55 | XMS_ITS | Patient Health Record ---
Author Organization [facility] [employer] Address [address] [place] [address] Care Team Providers Care Operations Officer Name Role Phone Yenni Simms Unavailable [phone] Allergies Allergen (clinical drug ingredient) Drug/Non Drug Allergy documented on EMR Reaction Allergy Type Onset Date Status angiotensin-converting enzyme inhibitor (FN) LUANN Inhibitors Unknown Drug Allergy 10/03/2023 Acti ve Reason For Referral No Information Medications Medication SIG (Take, Route, Frequency, Duration) Notes Start Date End Date Status Sertraline HCl 50 MG Tablet TAKE 1 TABLE T BY MOUTH EVERY DAY; Duration: 90 Active Nuplazid 34 MG Capsule TAKE 1 CAPSULE BY MOUTH 1 TIME A DAY; Duration: 90 days Active Atorvastatin Calcium 80 MG Tablet Oral 10/03/2023 Active Rivastigmine Tartrate 1.5 MG Capsule Oral 10/03/2023 Active Sertraline HCl 100 MG Tablet 1.5 tablet Oral Once a day; Duration: 90 days Active Nuplazid 34 MG Capsule 1 capsule ORAL On ce a day; Duration: 90 days Active Gabapentin 300 MG Capsule Oral 10/03/2023 Active Carbidopa-Levodopa 25-100 MG Tablet Oral 10/03/2023 Active Sertraline HCl 100 MG Tablet TAKE 1.5 TABLETS BY MOUTH ONCE A DAY 90 DAYS; Duration: 90 Active Memantine HCl 10 MG Tablet 2 tablet Oral ly Once a day Active Olmesartan Medoxomil 5 MG Tablet as directed Orally daily 10/03/2023 Act earl Januvia 100 MG Tablet Oral 10/03/2023 Active Social History Sex Assigned At : Social History Observation Description Sex Assigned At Female Social History Miscellaneous: Social Info Question Answer Notes Advance Care Planning Advance Directive [facility] re Proxy present (someone designated to make medical decisions), Durable Power of Media Liaison Officer for Healthcare Household: Social Info Question Answer Notes Household Marital status: Additional Details Category Social Info Options Details Migrated Social History Migrated Social History Alcohol Intake: None 05/03/2023,Tobacco Years: Never smoker 03/27/2023 Problems Problem Type SNOMED Code ICD Code Onset Dates Problem Status W/U Status Risk Notes Problem Generalized anxiety disorder (94232714) Generalized anxiety disorder (F41.1) Active confirmed Problem Dementia (53143498) Dementia in other diseases classified elsewhere without behavioral disturbance (F02.80) Active confirmed Vital Signs Heart Rate 74 /min 04/08/2025 Height-cm 162.56 cm 04/08/2025 Blood pressure diastolic 74 mm Hg 04/08/2025 Weight-kg 77.11 kg 04/08/2025 Height 64.00 in 04/08/2025 Blood pressure systolic 112 mm Hg 04/08/2025 Weight 170.0 lbs 04/08/2025 BMI 29.18 kg/m2 04/08/2025 Encounters Encounter Location Date Provider Diagnosis [facility] [employer] [place] [address] [address] [facility] [address] [address] 11/10/2024 Yenni Simms [place] [address] [facility] [address] [place] [address] 04/08/2025 Yenni Simms Dementia in other diseases classified elsewhere without behavioral disturbance F02.80 ; Generalized anxiety disorder F41.1 ; Encounter for screening for depression Z13.31 and Encounter for screening for cardiovascular disorders Z13.6 Assessments Encounter Date Diagnosis (ICD Code) Assessment Notes Treatment Notes Treatment Clinical Notes Section Notes 04/08/2025 Generalized anxiety disorder (ICD-10 - F41.1) Patient educated on all medications including potential benefits, side effects, risks. Educated on proper dosing schedule and importance of compliance. 04/08/2025 Dementia in other diseases classified elsewhere without behavioral disturbance (ICD-10 - F02.80) Continue Nuplazid 34mg daily. Continue to follow with neurologist. 04/08/2025 Encounter for screening for depression (ICD-10 - Z13.31) 04/08/2025 Encounter for screening for cardiovascular disorders (ICD-10 - Z13.6) Plan Of Treatment Next Appt Details Provider Name:Yenni cline, 07/02/2025 01:15:00 PM, [address], [place], [address], Provider Name:Yenni Shields marlyn, 10/07/2025 10:15:00 AM, [address], [place], [address], Insurance Providers Payer Name Payer Address Payer Phone Subscriber Number Group Number Insured Name Patient Relationship to Insured Coverage Start Date Coverage End Date Medicare-I l Medicare [address] [place] [phone] [id number] NAHUM TOVAR Self - patient is the insured Medical (General) History Medical History History ICD Code Problems: 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
--- OUTSIDE RECORDS SUMMARY | 2025-06-29 09:55 | XMS_ITS | Clinical Summary ---
Author Organization [facility] Address [address] [place] [address] Care Team Providers Care Auto Appraiser Name Role Phone Sangeetha Aguilar Primary Care Provider [phone] Allergies Active Allergy Reactions Criticality Noted Date [...] (08/15/2020): Added automatically from request for surgery [id number] Parkinson disease ([facility]) 07/04/2020 Other hyperlipidemia 07/04/2020 Essential [...] Comments Blood Pressure 118/72 12/02/2020 3:59 PM SWING TENDER Pulse 70 12/02/2020 3:59 PM SWING TENDER Temperature 36.3 C (97.4 F) 12/02/2020 3:59 PM SWING TENDER Respiratory Rate 18 12/02/2020 3:59 PM SWING TENDER Oxygen Saturation 97% 12/02/2020 3:59 PM SWING TENDER Inhaled Oxygen Concentration - - Weight 81.8 kg (180 lb 6.4 oz) 12/02/2020 3:59 P M SWING TENDER Height 162.6 cm (5' 4) 12/02/2020 3:59 PM SWING TENDER Body Mass Index 30.97 12/02/2020 3:59 PM SWING TENDER Plan of Treatment Health Maintenance Due Date Last Done Comments Hepatitis C 1971 Mammogram Screening 1993 Zoster Vaccines (1 of 2) 2003 DTaP, Tdap and Td Vaccines ( 1 - Tdap) 02/15/2005 02/14/2005, 03/02/1994 Pneumococcal Vaccine: 50+ Years (2 of 2 - PCV) 03/27/2016 03/27/2015 Annual Medicare Wellness Visit 2018 Dexa Scan (General) 2018 COVID-19 Vaccine (3 - 2024-2 6 season) 2025 01/24/2021, 12/07/2020 RSV Immunization or 60+ Years (1 - 1-dose 75+ series) 02/14/2028 Colorectal Cancer Screening Colonoscopy (10 Years) 08/24/2030 08/24/2020 Meningococcal B Vaccine Aged Out No l onger eligible based on patient's age to complete this topic Meningococcal Vaccine Aged Out No tosha mehran eligible based on patient's age to complete this topic RSV Immunizations Under 20 Months Aged Out No longer eligible b ased on patient's age to complete this topic Medical Devices Implanted Type Area Flume Worker Device Identifier Shelf Expiration Date Model / Serial / Lot Knee Insurance MEDICARE [facility] Care Teams Auto Appraiser Relationship Specialty [place] [address] [place] [address] PCP - General PHYSICIAN GROUND CREWMAN 07/04/20
[2025-06-29 13:15] LABS: Hematocrit 41.1 % (37.0-47.0); Hemoglobin 13.4 g/dL (12.0-15.0); Immature Granulocyte Percent A 0.2 % (0-0.5); Immature Platelet Fraction Pct 3.8 % (0.9-11.2); Lymphocytes Absolute Auto 0.96 K/mm3 (0.9-3.2); Mean Corpuscular HGB Conc 32.6 g/dl (32-36); Mean Corpuscular Hemoglobin 31.9 pg (26-34); Mean Corpuscular Volume 97.9 fl (80-100); Nucleated Red Blood Cells Absolute Auto 0.000 K/mm3 (0.0-0.012); Nucleated Red Blood Cells Perc 0.0 % (0.0-0.2); Platelet Count Result 123 k/mm3 (150-375); Red Blood Count 4.20 M/mm3 (4.2-5.4); White Blood Count 4.5 K/mm3 (4.5-10.0)
[2025-06-29 13:24] LABS: Alanine Aminotransferase 26 U/L (6-35); Albumin Level 4.3 g/dL (3.5-5.1); Alkaline Phosphatase 91 U/L (38-126); Anion Gap 11 mmol/L (4-12); Aspartate Amino Transferase 79 U/L (14-36); Bilirubin,Total 0.7 mg/dL (0.2-1.3); Blood Urea Nitrogen 16 mg/dL (7-17); Calcium 9.7 mg/dL (8.4-10.2); Carbon Dioxide 24 mmol/L (22-30); Chloride 102 mmol/L (98-107); Cholesterol 164 mg/dL (0-200); Estimated Glomerular Filt Rate 59; Glucose 146 mg/dL (65-110); HDL Direct 56 mg/dL; Potassium 3.8 mmol/L (3.4-5.0); Sodium 137 mmol/L (137-145); Total Protein 7.8 g/dL (6.3-8.2); Triglycerides 140 mg/dL (<150)
[2025-06-29 14:02] LABS: Thyroid Stimulating Hormone Reflex 3.380 uIU/mL (0.465-4.68)
[2025-06-29 14:24] LABS: Vitamin B12 599.0 pg/mL (239-931)
[2025-06-29 15:14] LABS: Hemoglobin A1C 6.3 % (<5.7)
== END 2025-06-29 09:11 | disposition home or self-care (01) ==
PROVIDERS: PCP Family Medicine; Visit Provider Family Medicine
DX: E11.9 Type 2 diabetes mellitus without complications (principal); E53.8 Deficiency of other specified B group vitamins; I10 Essential (primary) hypertension; E78.5 Hyperlipidemia, unspecified; E55.9 Vitamin D deficiency, unspecified
CPT/HCPCS: 36415; 80053; 80061; 82306; 82607; 83036; 84443; 85025; 85055

== ENCOUNTER 2025-07-01 09:53 | Outpatient (CLI) | payer MEDICARE, OTHER, SELFPAY ==
--- OUTSIDE RECORDS SUMMARY | 2025-07-01 10:54 | XMS_ITS | Encounter Summary ---
Author Organization [facility] Address [facility] [place] [address] Care Team Providers Care Supervisor Soldering Name Role Phone Sangeetha Aguilar Primary Care Provider [phone] Encounter Details Date Type Department Care Team (Late st Contact Info) Description 07/22/2020 [employer] Message Enc [facility] Medical Group Family & Internal Medicine [facility] [address] [place] [address] [place] [address] [place] [address] RE: Medication Questions Social History [...] Rule Out 08/21/2020 08/21/2020 08/22/2020 11:51 AM FILTER TENDER JELLY documented as of this encounter Care Teams Supervisor Soldering Relationship Specialty Start [place] [address] [place] [address] PCP - General PHYSICIAN LAWN SERVICE WORKER 07/04/20 documented as of this encounter
--- OUTSIDE RECORDS SUMMARY | 2025-07-01 10:54 | XMS_ITS | Encounter Summary ---
Author Organization [facility] Address [facility] [place] [address] Care Team Providers Care Snow Blower Name Role Phone Sangeetha Aguilar Primary Care Provider [phone] Encounter Details Date Type Department Care Team (Late st Contact Info) Description 08/15/2020 Prep for Procedure [facility] [address] [place], [place] [id number] Josh Carrasco MD [address] [address] Social History Tobacco Use Types Packs/Day Years [...] PRE-SURGICAL/PRE-PROCEDURE CORONAVIRUS (COVID 19) (08/21/2020 7:44 AM CULINARY MANAGER) CORONAVIRUS SARS COV 2 PCR (RESP) NOT DETECTED NOT DETECTED 08/22/2020 11:50 AM CULINARY MANAGER [email or web address] Comment: A Not Detected (negative) test result [...] providers and patients using the following websites: https://www.[employer].lifecake/home/Covid-19/HCP/[employer]/fact- sheet.html https://www.[employer].lifecake/home/Covid-19/Patients/ [employer]/fact-sheet.html This test has been authorized by the FDA under an Emergency Use Authorization (EUA) for use by authorized laboratories. Due to the current public health emergency, [facility] [employer] [facility] is receiving a high volume of samples [...] about COVID-19 can be found at the [employer] website: www.[employer].com/Covid19. Test performed at [facility] [address] [place] [address] Director: ERIC GONSALVES DO,MPH FIRST TEST UNKNOWN 08/21/2020 7:45 AM CULINARY MANAGER [facility] EMPLOYED IN HEALTHCARE NO 08/21/2020 7:45 AM CULINARY MANAGER [facility] SYMPTOMATIC DEFINED BY CDC NO 08/21/2020 7:45 AM CULINARY MANAGER [facility] DATE OF SYMPTOM ONSET UNKNOWN 08/21/2020 8:02 AM CULINARY MANAGER [facility] HOSPITALIZATION STATUS NO 08/21/2020 7:45 AM CULINARY MANAGER [facility] PATIENT IN ICU NO 08/21/2020 7:45 AM CULINARY MANAGER [facility] RESIDENT OF [facility] NO 08/21/2020 7:45 AM CULINARY MANAGER [facility] UNKNOWN 08/21/2020 8:02 AM CULINARY MANAGER [facility] PATIENT'S RACE WHITE OR 08/21/2020 7:45 AM [facility] ETHNICITY NONHISPANIC 08/21/2020 7:45 AM CULINARY MANAGER [facility] SOURCE (QST) NASOPHARYNGEAL SWAB 08/21/2020 7:45 AM [facility] NASOPHARYNGEAL SWAB / Unknown 08/21/2020 7:44 AM CULINARY MANAGER Josh Carrasco MD MICROBIOLOGY - GENERAL ORDERABLE S Final Result Performing Organization Address City/State/[facility] Co de Phone Number [facility] [address] [place] [address], [place] [phone] [employer] [facility] [id number] [place] [address], documented in this encounter Visit Diagnoses Diagnosis Preop testing- Primary Preoperative examination, unspecified documented in this encounter Additional Health Concerns Infection Onset Date Last Indicated Resolved Time COVID-19 Rule Out 08/21/2020 08/21/2020 08/22/2020 11:51 AM CULINARY MANAGER documented as of this encounter Care Teams Snow Blower Relationship Specialty [place] [address] [place] [address] PCP - General PHYSICIAN ASPHALT PAVING SUPERVISOR 07/04/20 documented as of this encounter
--- OUTSIDE RECORDS SUMMARY | 2025-07-01 10:54 | XMS_ITS | Encounter Summary ---
Author Organization [facility] Address [facility] [place] [address] Care Team Providers Care Ordnance Technician Name Role Phone Sangeetha Aguilar Primary Care Provider [phone] Encounter Details Date Type Department Care Team (Late st Contact Info) Description 07/22/2020 [employer] Message Enc [facility] Family & Internal Medicine [facility] [address] [place] [address] [place] [address] [place] [address] Follow Up/Update Social History Tobacco [...] Rule Out 08/21/2020 08/21/2020 08/22/2020 11:51 AM HERBARIUM CURATOR documented as of this encounter Care Teams Ordnance Technician Relationship Specialty Start [place] [address] [place] [address] PCP - General PHYSICIAN HUMAN RESOURCE MANAGER 07/04/20 documented as of this encounter
--- OUTSIDE RECORDS SUMMARY | 2025-07-01 10:54 | XMS_ITS | Clinical Summary ---
Author Organization [facility] Address [address] [place] [address] Care Team Providers Care Food General Manager Name Role Phone Sangeetha Aguilar Primary Care Provider [phone] Allergies Active Allergy Reactions Criticality Noted Date [...] (08/15/2020): Added automatically from request for surgery [id number] Parkinson disease ([facility]) 07/04/2020 Other hyperlipidemia 07/04/2020 Essential hypertension 07/04/2020 [...] Comments Blood Pressure 118/72 12/02/2020 3:59 PM [employer]SELOR AT [employer] Pulse 70 12/02/2020 3:59 PM [employer] Temperature 36.3 C (97.4 F) 12/02/2020 3:59 PM [employer] Respiratory Rate 18 12/02/2020 3:59 PM [employer]OR AT [employer] Oxygen Saturation 97% 12/02/2020 3:59 PM COUN[employer]OR AT [employer] Inhaled Oxygen Concentration - - Weight 81.8 kg (180 lb 6.4 oz) 12/02/2020 3:59 P M [employer] Height 162.6 cm (5' 4) 12/02/2020 3:59 PM [employer]OR [employer] Body Mass Index 30.97 12/02/2020 3:59 PM COUN[employer]OR AT [employer] Plan of Treatment Health Maintenance Due Date [...] this topic Medical Devices Implanted Type Area Automotive Brake Technician Device Identifier Shelf Expiration Date Model / Serial / Lot Knee Insurance MEDICARE [facility] Care Teams Food General Manager Relationship Specialty Start [place] [address] [place] [address] PCP - General PHYSICIAN TERMITE TREATER HELPER 07/04/20
--- OUTSIDE RECORDS SUMMARY | 2025-07-01 10:54 | XMS_ITS | Patient Health Record ---
Author Organization [facility] [employer] Address [address] [place] [address] Care Team Providers Care Film Painter Name Role Phone Yenni Simms Unavailable [phone] Allergies Allergen (clinical drug ingredient) Drug/Non Drug [...] to make medical decisions), Durable Power of Metal [employer] for Healthcare Household: Social Info Question Answer Notes Household Marital status: Additional Details Category Social Info Options Details Migrated Social History Migrated Social History Alcohol Intake: None 05/03/2023,Tobacco Years: Never smoker 03/27/2023 Problems Problem Type SNOMED Code ICD Code Onset Dates Problem Status W/U Status Risk Notes Problem Generalized anxiety disorder (40710252) Generalized anxiety disorder (F41.1) Active confirmed Problem Dementia (62927281) Dementia in other diseases classified elsewhere without behavioral disturbance (F02.80) Active confirmed Vital Signs Heart Rate 74 /min 04/08/2025 Height-cm 162.56 cm 04/08/2025 Blood pressure diastolic 74 mm Hg 04/08/2025 Weight-kg 77.11 kg 04/08/2025 Height 64.00 in 04/08/2025 Blood pressure systolic 112 mm Hg 04/08/2025 Weight 170.0 lbs 04/08/2025 BMI 29.18 kg/m2 04/08/2025 Encounters Encounter Location Date Provider Diagnosis [facility] [employer] [place] [address] [facility] [address] [address] 11/10/2024 Yenni Simms [place] [address] [facility] [address] [place] [address] 04/08/2025 Yenni Simms Dementia in other diseases [...] PM, [address], [place], [address], Provider Name:Yenni Shields marlyn, 10/07/2025 10:15:00 AM, [address], [place], [address], Insurance Providers Payer Name Payer Address Payer Phone Subscriber Number Group Number Insured Name Patient Relationship to Insured Coverage Start Date Coverage End Date Medicare-I l Medicare [address] [place] [address] [id number] NAHUM TOVAR Self - patient is the insured Medical (General) History Medical History History ICD Code Problems: 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
== END 2025-07-01 09:54 | disposition home or self-care (01) ==
LOC: ANHNEURO 09:54
PROVIDERS: PCP Family Medicine; Visit Provider Psychiatry & Neurology Neurology
DX: G31.83 Neurocognitive disorder with Lewy bodies (principal); F02.818 Dementia in other diseases classified elsewhere, unspecified severity, with other behavioral disturbance; G20.B1 Parkinson's disease with dyskinesia, without mention of fluctuations
CPT/HCPCS: 95816

== ENCOUNTER 2025-07-02 12:51 | Outpatient (NON) | payer MEDICARE, OTHER, SELFPAY ==
[2025-07-02 19:03] LABS: MALB Creatinine Ratio 11.6 mg/g (0-30)
--- NOTE | 2025-07-05 11:58 | WPDNEUROLOGY ---
Neurology EEG Report General Information Date of Study: 07/01/25 TEST electroencephalogram DIAGNOSIS neurocognitive disorder with Lewy body CONDITION OF RECORDING neurodiagnostic lab EEG NUMBER [id number] CLINICAL HISTORY 70-year-old with history of staring spells. She has history of dementia and Parkinson's disease. She has spells where she does not respond and staring off. EEG DESCRIPTION During wakefulness the background activity consists of posterior dominant rhythm in theta range at approximately 6-7 hertz with an amplitude of 15-30 microvolts. This appears mildly formed. Anteriorly muscle tension artifacts were seen significantly throughout the recording. EKG tracing shows irregularities followed by relative normal sinus rhythm which was difficult to discern due to muscle tension artifacts. hyperventilation not performed. Photic sense of was performed during which no significant abnormal background changes were seen. Patient did not progress to stage 2 sleep. IMPRESSION This is an abnormal EEG due to Mild diffuse background slowing suggests a generalized encephalopathy. Muscle tension artifacts were seen in frontal temporal electrodes frequently during the recording which may limit identification of focal abnormalities. EKG tracing was difficult to interpret due to muscle tension artifacts however at times shows irregularities. Further evaluation should be considered with Holter monitoring.
== END 2025-07-02 12:52 | disposition home or self-care (01) ==
LOC: ANHGOSHLAB 12:53
PROVIDERS: PCP Family Medicine; Visit Provider Family Medicine
DX: E53.8 Deficiency of other specified B group vitamins (principal); E55.9 Vitamin D deficiency, unspecified
CPT/HCPCS: 82043